=== PATIENT | female | born 1955 | race Caucasian/White ===

== ENCOUNTER 2019-09-06 13:50 | Outpatient (CLI) | payer MEDICARE, SELFPAY ==
--- NOTE | 2019-09-06 14:30 | MR_ITS ---
WS: [id number] MRI CERVICAL SPINE HISTORY: Neck pain COMPARISON: None available. Straightening of the normal cervical lordosis. Less than 1 mm retrolisthesis of C3. 2 mm retrolisthes is of C4. There is mild disc desiccation throughout the cervical spine. Signal within the cervical cord is normal. Visualized posterior fossa is unremarkable. Craniocervical junction, C1 and C2 relationship, odontoid process and soft tissues are normal. C2-C3: Normal. C3-C4: Annular disc bulging with a central moderate disc protrusion. Effacement of CSF was very sligh t contact and deformity of the ventral cervical cord. There is mild central stenosis. Hypertrophic os teophytes extend into the foramen with only minimal RIGHT foraminal narrowing. C4-C5: Hypertrophic osteophytic ridging and annular disc bulge. There is also facet arthritis. There is mild central and moderate RIGHT foraminal stenosis. C5-C6: Mild osteophytic ridging and annular disc bulging. There is mild RIGHT foraminal stenosis and mild central stenosis. C6-C7: Mild osteophytic ridging with a moderate-sized RIGHT paracentral disc protrusion. There is eff acement of CSF anterior and posterior to the cervical cord on the RIGHT. Moderate central stenosis is asymmetric to the RIGHT with moderate to severe RIGHT foraminal stenosis. Very mild LEFT foraminal s tenosis due to disc osteophyte disease. C7-T1: Normal. Paraspinal soft tissue are normal. MR/MR cervical spin wo con* [id number] IMPRESSION: 1. Asymmetric central canal stenosis at C6-7. Complete effacement of CSF anter ior and posterior to the RIGHT lateral cervical cord at the C6-7 level due to d isc, facet disease and arthritis of the facet joint. 2. Moderate to severe RIGHT foraminal stenosis at C6-7. 3. Mild central and moderate RIGHT foraminal stenosis at C4-5 with mild centra l and RIGHT foraminal stenosis at C5-6. 4. Central disc protrusion at C3-4 with mild contact on the cord. 5. Slight retrolisthesis of C3 and C4.
--- NOTE | 2019-09-06 14:30 | XR_ITS ---
WS: [id number] LATERAL CERVICAL SPINE: 3 view. Lateral radiographs are performed in upright neutral, flexion and extension to the patient's toleranc e. HISTORY: Neck pain COMPARISON: None available. Mild straightening of the normal cervical lordosis. C4 retrolisthesis by 2.3 mm on neutral imaging. S imilar on flexion and increases to 3.4 mm on extension. Less than 2 mm retrolisthesis of C3 during ex tension. Mild disc space narrowing or osteophytes from C4 to C7. No fracture. On neutral and flexion imaging there is narrowing of the anterior disc space at C3-4 which returns to normal spacing on extension. XR/XR cervical spine fl/ex [id number] IMPRESSION: 1. Retrolisthesis of C4 by 2.3 mm. No significant instability. 2. Endplate osteophytes and mild disc space narrowing at C4-C7.
--- NOTE | 2019-09-06 15:15 | MR_ITS ---
WS: [id number] MRI LUMBAR SPINE WITH AND WITHOUT CONTRAST HISTORY: Low back pain COMPARISON: 01/05/2018 TECHNIQUE: Sagittal and axial multisequence imaging is submitted. Sagittal and axial T1 fat sat seque nces post-ProHance 12 cc IV. Mild straightening of the normal lumbar lordosis. No marrow edema or acute compression fracture. Mild heterogeneity within the marrow from osteopenia. Similar to the prior study. LEFT L4-5 laminectomy d efect. Mild disc desiccation throughout the lumbar spine. Conus terminates normally at L1-2 disc level. L1-L2: Ligamentum flavum hypertrophy and mild facet arthropathy. No stenosis. L2-L3: Diffuse annular disc bulging with a central fissure. Mild effacement of ventral CSF and facet arthropathy. Mild central and subarticular recess stenosis. L3-L4: Diffuse annular disc bulging with facet and ligamentum flavum arthropathy. Central annular dis c fissures. There is mild central, subarticular recess and foraminal stenosis. Mild encroachment upon the L4 nerve roots in the subarticular recesses. Similar to the prior study. L4-L5: Diffuse annular disc bulging. LEFT L4-5 hemilaminectomy defect. Ligamentum flavum arthropathy and facet arthropathy. Significant decrease in size of the recurrent disc protrusion described on 12/17. There is slight enhancement in the region of the disc protrusion described on 01/05/2018. There is also moderate to severe LEFT and mild RIGHT foraminal stenosis. L5-S1: Asymmetric disc bulging extends to the LEFT. Fluid in the facet joints bilaterally. Mild LEFT foraminal stenosis. No discitis or osteomyelitis. MR/MR lumbar spine wo/w con [id number] IMPRESSION: 1. Status post LEFT hemilaminectomy defect at L4-5. 2. Recurrent disc protrusion described at the L4-5 level on the prior study is no longer present. There is a small area of enhancement now at the disc site. No new disc protrusion. 3. Mild central, subarticular recess and foraminal stenosis at L3-4. Similar e ncroachment upon the L4 nerve roots in the subarticular recesses as on the prio r study. 4. Moderate to severe LEFT and mild RIGHT foraminal stenosis at L4-5. Similar to the prior study. 5. Mild LEFT foraminal stenosis at L5-S1.
--- NOTE | 2019-09-06 15:15 | XR_ITS ---
WS: [id number] LATERAL LUMBAR SPINE: 3 view. Lateral radiographs are performed in upright neutral, flexion and extension to the patient's toleranc e. HISTORY: Low back pain COMPARISON: 01/05/2018 Posterior lumbar alignment is normal. Disc space narrowing and desiccation throughout. Endplate osteo phytes without fracture. No instability. XR/XR lumbar spine f/e only [id number] IMPRESSION: No lumbar spine instability.
== END 2019-09-06 13:51 | disposition home or self-care (01) ==
PROVIDERS: Family Provider Nurse Practitioner; PCP Nurse Practitioner; Visit Provider Licensed Practical Nurse
DX: M51.26 Other intervertebral disc displacement, lumbar region (principal); M48.061 Spinal stenosis, lumbar region without neurogenic claudication; M25.78 Osteophyte, vertebrae; M48.02 Spinal stenosis, cervical region; M50.21 Other cervical disc displacement, high cervical region
CPT/HCPCS: 72040; 72120; 72141; 72158; A9579

== ENCOUNTER 2019-09-16 06:00 | Outpatient (RCR) | payer MEDICARE, SELFPAY | END 2019-10-16 23:59 | disposition home or self-care (01) | LOC: MPT 06:00 | PROVIDERS: Family Provider Nurse Practitioner; PCP Nurse Practitioner; Referring Provider Specialist; Visit Provider Specialist | DX: M50.020 Cervical disc disorder with myelopathy, mid-cervical region, unspecified level (principal) | CPT/HCPCS: 97110; 97140; 97161; G0283 ==

== ENCOUNTER 2019-10-17 06:00 | Outpatient (RCR) | payer MEDICARE, SELFPAY | END 2019-11-15 23:59 | disposition home or self-care (01) | LOC: MPT 06:00 | PROVIDERS: PCP Nurse Practitioner; Visit Provider Specialist | DX: M50.020 Cervical disc disorder with myelopathy, mid-cervical region, unspecified level (principal) | CPT/HCPCS: 97110; 97140 ==

== ENCOUNTER → 2019-12-05 08:19 | Outpatient (BNVA) | payer MEDICARE, SELFPAY | PROVIDERS: PCP Physician Assistant Medical; Visit Provider Anesthesiology Pain Medicine | DX: M54.9 Dorsalgia, unspecified (principal); M96.1 Postlaminectomy syndrome, not elsewhere classified; M50.020 Cervical disc disorder with myelopathy, mid-cervical region, unspecified level; M43.12 Spondylolisthesis, cervical region; Z79.899 Other long term (current) drug therapy | CPT/HCPCS: 99204 ==

== ENCOUNTER → 2019-12-13 13:40 | Outpatient (BNVA) | payer MEDICARE, SELFPAY | PROVIDERS: PCP Physician Assistant Medical; Visit Provider Anesthesiology Pain Medicine | DX: M47.816 Spondylosis without myelopathy or radiculopathy, lumbar region (principal); M54.9 Dorsalgia, unspecified | CPT/HCPCS: 64493; 64494; 64495; J3490 ==

== ENCOUNTER → 2019-12-27 08:39 | Outpatient (BNVA) | payer MEDICARE, SELFPAY | PROVIDERS: PCP Physician Assistant Medical; Visit Provider Anesthesiology Pain Medicine | DX: M48.061 Spinal stenosis, lumbar region without neurogenic claudication (principal); M48.07 Spinal stenosis, lumbosacral region; M96.1 Postlaminectomy syndrome, not elsewhere classified; M50.020 Cervical disc disorder with myelopathy, mid-cervical region, unspecified level; M43.12 Spondylolisthesis, cervical region; M48.02 Spinal stenosis, cervical region; M54.9 Dorsalgia, unspecified; Z79.891 Long term (current) use of opiate analgesic | CPT/HCPCS: 99214 ==

== ENCOUNTER → 2020-01-06 11:00 | Outpatient (BNVA) | payer MEDICARE, SELFPAY | PROVIDERS: PCP Physician Assistant Medical; Visit Provider Anesthesiology Pain Medicine | DX: M47.816 Spondylosis without myelopathy or radiculopathy, lumbar region (principal); M54.9 Dorsalgia, unspecified; Z79.891 Long term (current) use of opiate analgesic | CPT/HCPCS: 64493; 64494; 64495; J1040; J3490 ==

== ENCOUNTER → 2020-01-20 10:11 | Outpatient (BNVA) | payer MEDICARE, SELFPAY | PROVIDERS: PCP Physician Assistant Medical; Visit Provider Anesthesiology Pain Medicine | DX: M54.9 Dorsalgia, unspecified (principal); M96.1 Postlaminectomy syndrome, not elsewhere classified; M50.020 Cervical disc disorder with myelopathy, mid-cervical region, unspecified level; M43.12 Spondylolisthesis, cervical region; Z79.891 Long term (current) use of opiate analgesic | CPT/HCPCS: 99213 ==

== ENCOUNTER → 2020-02-17 10:38 | Outpatient (BNVA) | payer MEDICARE, SELFPAY | PROVIDERS: PCP Physician Assistant Medical; Visit Provider Anesthesiology Pain Medicine | DX: G89.29 Other chronic pain (principal); M54.42 Lumbago with sciatica, left side; M54.41 Lumbago with sciatica, right side; M54.9 Dorsalgia, unspecified; M96.1 Postlaminectomy syndrome, not elsewhere classified; M50.020 Cervical disc disorder with myelopathy, mid-cervical region, unspecified level; M43.12 Spondylolisthesis, cervical region; Z79.891 Long term (current) use of opiate analgesic | CPT/HCPCS: 99213 ==

== ENCOUNTER → 2020-05-03 10:35 | Outpatient (BNVA) | payer MEDICARE, SELFPAY | PROVIDERS: PCP Physician Assistant Medical; Visit Provider Anesthesiology Pain Medicine | DX: G89.29 Other chronic pain (principal); M54.9 Dorsalgia, unspecified; M96.1 Postlaminectomy syndrome, not elsewhere classified; M50.020 Cervical disc disorder with myelopathy, mid-cervical region, unspecified level; M43.12 Spondylolisthesis, cervical region; Z79.891 Long term (current) use of opiate analgesic | CPT/HCPCS: 99213 ==

== ENCOUNTER → 2020-07-16 08:46 | Outpatient (BNVA) | payer MEDICARE, SELFPAY | PROVIDERS: PCP Physician Assistant Medical; Visit Provider Anesthesiology Pain Medicine | DX: G89.29 Other chronic pain (principal); M54.9 Dorsalgia, unspecified; M96.1 Postlaminectomy syndrome, not elsewhere classified; M50.020 Cervical disc disorder with myelopathy, mid-cervical region, unspecified level; M43.12 Spondylolisthesis, cervical region; Z79.891 Long term (current) use of opiate analgesic | CPT/HCPCS: 99213; 99214 ==

== ENCOUNTER → 2020-09-17 08:42 | Outpatient (BNVA) | payer MEDICARE, SELFPAY | PROVIDERS: PCP Physician Assistant Medical; Visit Provider Anesthesiology Pain Medicine | DX: G89.29 Other chronic pain (principal); M79.604 Pain in right leg; M79.605 Pain in left leg; M48.062 Spinal stenosis, lumbar region with neurogenic claudication; M54.9 Dorsalgia, unspecified; M96.1 Postlaminectomy syndrome, not elsewhere classified; M50.020 Cervical disc disorder with myelopathy, mid-cervical region, unspecified level; M43.12 Spondylolisthesis, cervical region; Z79.891 Long term (current) use of opiate analgesic | CPT/HCPCS: 99214 ==

== ENCOUNTER → 2020-10-11 09:00 | Outpatient (BNVA) | payer MEDICARE, SELFPAY | PROVIDERS: PCP Physician Assistant Medical; Referring Provider Anesthesiology Pain Medicine; Visit Provider Orthopaedic Surgery | DX: G89.29 Other chronic pain (principal) | CPT/HCPCS: 72110 ==

== ENCOUNTER → 2020-10-16 08:57 | Outpatient (BNVA) | payer MEDICARE, SELFPAY | PROVIDERS: PCP Physician Assistant Medical; Visit Provider Anesthesiology Pain Medicine | DX: G89.29 Other chronic pain (principal); M54.9 Dorsalgia, unspecified; M79.604 Pain in right leg; M79.605 Pain in left leg; M43.12 Spondylolisthesis, cervical region; M50.020 Cervical disc disorder with myelopathy, mid-cervical region, unspecified level; M96.1 Postlaminectomy syndrome, not elsewhere classified; Z79.891 Long term (current) use of opiate analgesic | CPT/HCPCS: 99214 ==

== ENCOUNTER → 2020-11-16 10:54 | Outpatient (BNVA) | payer MEDICARE, SELFPAY | PROVIDERS: PCP Physician Assistant Medical; Visit Provider Anesthesiology Pain Medicine | DX: G89.29 Other chronic pain (principal); Z11.52 Encounter for screening for COVID-19; M54.9 Dorsalgia, unspecified; Z20.822 Contact with and (suspected) exposure to COVID-19; M96.1 Postlaminectomy syndrome, not elsewhere classified; Z01.812 Encounter for preprocedural laboratory examination; M50.020 Cervical disc disorder with myelopathy, mid-cervical region, unspecified level; M43.12 Spondylolisthesis, cervical region; M79.604 Pain in right leg; M79.605 Pain in left leg; Z79.891 Long term (current) use of opiate analgesic | CPT/HCPCS: 87635; 99214 ==

== ENCOUNTER 2020-11-21 08:23 | Day surgery (SDC) | payer MEDICARE, SELFPAY ==
[2020-11-20 13:51] VITALS: BMI 17.5
[2020-11-21] VITALS (10 sets, daily range): BP systolic 105–148; BP diastolic 58–84; PULSE 67–90; RESP 12–19; TEMP 36.3–36.5; O2SAT 93–100
--- NOTE | 2020-11-21 | SCC_ITS ---
Procedure Done: 1. L5/S1 laminectomy with bilateral partail facetectomies 2. L4/5 revision laminectomy with bilateral partial facetectomies 3. L3/4 laminectomy with bilateal partial facetectomies 30.9 seconds of fluoroscopic guidance, for a cumulative dose of 4.35 mGy, was provided to Dr. Garcia by the radiology department. C-arm images of the lumbar were saved for the patient's permanent record. [facility]
--- NOTE | 2020-11-21 | XR_ITS ---
WS: [id number] Lumbar spine, C-arm fluoroscopy view in the OR, 11/21/2020 Clinical Data: 07/19 08/20 WITH REVISION L5/S1 DECOMPRESSION Comparison: Lumbar spine, 10/11/2020. Findings: Dr. Garcia performed a revision of the L4-L5 disc and decompression of the L5-S1 disc. XR/XR lumbar spine 2-3V* [id number] Impression: Revision of L4-L5 and decompression of L5-S1.
--- NOTE | 2020-11-21 08:56 | ANES.PREANE2 ---
Pre-Anesthetic Assessment Pre-Anesthetic Assessment: Height/Weight: Height 1.57 m Weight 43.545 kg Temp Pulse Resp BP Pulse Ox 97.3 F L 75 18 128/68 93 11/21/20 08:43 11/21/20 08:43 11/21/20 08:43 11/21/20 08:43 11/21/20 08:43 Preop Diagnosis: lumbar stenosis Proposed Procedure: Operation Date: 11/21/20 15:35 Proposed Procedures p Lumbar Spine Decompression 3/4 4/5 with revision 5/s1 [id number] m48.062(Not Applicable) - Kal Garcia DO Familial anesthetic complications: none Was Beta Emil taken within 24 hours: N/A Was Clonidine taken within 24 hours: N/A Last intake: Intake Last Liquid Date 11/20/20 Last Liquid Time 22:00 Last Solid Date 11/20/20 Last Solid Time 20:00 Social: Social History: No alcohol and No tobacco Comment: former smoker Exam: Pre-Anes Outpt Exam: alert, oriented x 3, clear to auscultation bilaterally and regular rate & rhythm Airway: Cervical ROM: WNL MP: 2 Dentition: Other (upper plate) Pulmonary: Pulmonary: COPD CV/HEM: CV/HEM: HTN Comments: No NTG use for over 1 year Stress test 2019 CONCLUSION: 1. Normal EKG response to treadmill exercise. Interpretation limited by baseline artifact. 2. No exercise-induced chest pain or cardiac arrhythmia 3. Excellent exercise tolerance, attained a maximum of 10.2 METs. The Rene treadmill score of 6.5, suggestive of low risk. Double product 21,016. 4. Perfusion scan will be documented separately. 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 Aguilar L4-L5 hemilaminotomy/discectomy/foraminotomy History of surgery on wrist S/P left hemicolectomy 02/21/20 Family History Sister Lung disease Mother Heart disease Diabetes Father Diabetes Social History Smoking and tobacco status: former smoker Alcohol intake: never Lives independently: Yes Household members: spouse Marital status: Current occupational status: retired History of recent travel: No Data Anesthesia Cardiac Studies: No Data to Display
[2020-11-21] MEDS: sodium chloride 0.9% 1,000 ML 30 ML IV (09:12)
--- NOTE | 2020-11-21 09:35 | PM.HP ---
Providers/Chief Complaint Primary Care Provider: Hernan Garcia Chief Complaint: 07/19 08/20 with revision 5/s1 [id number] History of Present Illness Sangeeta Manzanares is a 65 year old female 65 year old female her for evaluation of low back pain. Patient states she was able to walk up and down hills and would walk three miles a day without pain or discomfort but has no londer been able to do so due to pain. Chief Complaint: low back pain Onset: years Duration: years Characteristics: ache Severity: 02/24 Location: low abck pain Radiating symptoms: all of it bilateral lower extremity , weakness, bilateral hip pain Aggravating factors: walking, Alleviating factors: none Neuro deficits: denies incontinence of bowel/bladder, saddle anesthesia. Prior tx:DOS: 11/03/16 Left L4-L5 hemilaminotomy/discectomy/foraminotomy, Injections with short term relief Review of Systems Narrative: General ROS: negative for weight changes, fever ENT ROS: negative for nasal congestion, drainage or bleeding, sore throat, dysphagia or ear pain Eyes: PERRL Hematological and Lymphatic ROS: negative for swollen glands or abnormal bleeding Endocrine ROS: negative for polyuria/polydpsia or new changes in weight Respiratory ROS: negative for cough, shortness of breath, or wheezing Cardiovascular ROS: negative for chest pain or dyspnea on exertion Gastrointestinal ROS: negative for reflux, abdominal pain, change in bowel habits, or black or bloody stools Musculoskeletal ROS: negative for back pain, neck pain, or joint pain or swelling except for current problem Neurological ROS: negative for TIA or stoke symptoms Skin: no rashes Medications/Allergies Home Medications Medication Instructions Recorded Confirmed Last Taken Type budesonide-formoterol HFA 160 2 puff INHALATION BID 08/29/19 11/21/20 11/21/20 History mcg-4.5 mcg/actuation aerosol inhaler bupropion HCl 75 mg tablet 75 mg PO BID tab 08/29/19 11/21/20 11/20/20 History aspirin 81 mg tablet,delayed 81 mg PO DAILY 12/05/19 11/21/20 Unknown History release cholecalciferol (vitamin D3) 125 125 mcg PO DAILY 12/05/19 11/21/20 11/20/20 History mcg (5,000 unit) capsule clonidine HCl 0.1 mg tablet 0.1 mg PO BID PRN 12/05/19 11/21/20 Unknown History cyanocobalamin (vitamin B-12) 1,000 mcg PO DAILY 12/05/19 11/21/20 11/20/20 History 1,000 mcg capsule famotidine 40 mg tablet 40 mg PO DAILY 12/05/19 11/21/20 11/20/20 History nitroglycerin 0.4 mg sublingual 0.4 mg SUBLINGUAL Q5M PRN 12/05/19 11/20/20 Unknown History tablet lisinopril 10 mg tablet 10 mg PO DAILY 03/05/20 11/21/20 11/21/20 History azelastine 137 mcg (0.1 %) nasal 2 spray INTRANASAL BID 10/11/20 11/21/20 11/20/20 History spray aerosol levocetirizine 5 mg tablet 5 mg PO DAILY 10/11/20 11/21/20 11/20/20 History tramadol 50 mg tablet 50 mg PO BID PRN #60 tab 11/16/20 11/21/20 11/20/20 Rx Allergies Allergy/AdvReac Type Severity Reaction Status Date / Time moxifloxacin [From Avelox] AdvReac ITCHING Verified 11/20/20 13:46 Sulfa (Sulfonamide AdvReac ITCHING Verified 11/20/20 13:46 Antibiotics) PFSH Acute PFSH: Medical History Arthritis of lumbar spine Cervical disc disorder with myelopathy of mid-cervical region Chronic low back pain Lumbar post-laminectomy syndrome Neck pain of over 3 months duration Spondylolisthesis of cervical region Surgical History History of hysterectomy History of lumbar surgery (11/03/16) Dr. Aguilar L4-L5 hemilaminotomy/discectomy/foraminotomy History of surgery on wrist S/P left hemicolectomy 02/21/20 Family History Sister Lung disease Mother Heart disease Diabetes Father Diabetes Social History Smoking and tobacco status: former smoker Alcohol intake: never Lives independently: Yes Household members: spouse Marital status: Current occupational status: retired History of recent travel: No Vitals/I&O/Wt Last Vital Signs Temp 97.3 F L 11/21/20 08:43 Pulse 75 11/21/20 08:43 Resp 18 11/21/20 08:43 BP 128/68 11/21/20 08:43 Pulse Ox 93 11/21/20 08:43 Weight last 48 hrs Weight 96 lb Physical Exam Narrative: EXAM NARRATIVE: CONSTITUTIONAL: The patient is a normal appearing [] in no apparent distress. GENERAL: Patient in no acute distress. CARDIAC: Regular rate and rhythm. CHEST: Normal inspiratory effort, normal respiratory rate. ABDOMEN: Soft and nontender. SKIN: Clear, warm and intact. NEURO?PSYCH: The patient is alert and oriented to person, place and time. Sensorv /SILT Motor StrengthShoulder abduction C5 5/5Wrist extension C6 5/5Elbow extension C7 5/5Hand [employer] Senior C8 5/5Finger abduction T15/5 Radial/ Ulnar/ Median n intact LowerSensory (SILT)Motor StrengthHin flexion L2/3Ant/inner thigh 5/5Hip adduction L2/3 5/5Knee extension L4 Lat thigh, 5/5Toe dorsiflexion L5 5/5Ankle dorsiflexion L5/ J35Fheyjsl flexion S1 5/5 DTRBleeps 2+Triceps 2+Brachioradialis 2+Patellar 2+Achilles 2+ MUSCULOSKELETAL: [] UPPEREXTREMITIES: The patient had full active ROM in fingers, wrist, elbow, and shoulder. The patient demonstrated ability to fully flex/extend/abduct/adduct fingers, make ok sign, cross 2nd/3rd digits, extend 1st digit fully.. Radial pulse 2+, CR<2 seconds. LOWER EXTREMITIES: Pt has full, active ROM of toes, ankle, knee, and hip. Dorsalis pedis/posterior tibialis pulses 2+, CR<2 seconds. SPINE: Skin warm, dry, intact. A&P Assessment and plan (1) Lumbar post-laminectomy syndrome: lumbar decompressin Status: Chronic Attestations Medical Necessity Statement*: failed conservative treatment Coding Level of Care Code Acute Switch Inspector for [facility] Diagnoses Lumbar post-laminectomy syndrome M96.1
--- NOTE | 2020-11-21 09:38 | W.PM.OPSUD ---
Surgery/Procedure H&P Update DATE OF PROCEDURE: November 21, 2020 DATE H&P PERFORMED: 11/21/20 H&P UPDATE INFORMATION: I have reviewed H&P completed within last 30 days PREOP DIAGNOSIS: lumbar stenosis PLANNED PROCEDURE: Operation Date: 11/21/20 15:35 Proposed Procedures p Lumbar Spine Decompression 07/19 08/20 with revision [id number] m48.062(Not Applicable) - Kal Garcia DO
[2020-11-21 10:44] LABS: Basophils # 0.1 10^3/uL (0.0-0.1); Basophils % 0.7 %; Eosinophils # 0.1 10^3/uL (0.0-0.8); Hematocrit 39.7 % (37.0-47.0); Lymphocytes # 1.5 10^3/uL (0.8-4.8); Lymphocytes % 21.2 %; Mean Corpuscular HGB Conc 32.7 g/dL (30.0-36.0); Mean Corpuscular Hemoglobin 31.3 pg (28.0-34.0); Mean Corpuscular Volume 95.7 fL (81-99); Mean Platelet Volume 9.5 fL (7.4-10.4); Monocytes # 0.6 10^3/uL (0.2-0.9); Nucleated Red Blood Cells % 0 %; Platelet Count 412 10^3/cmm (130-400); Red Blood Count 4.15 10^6/uL (4.1-5.3); Red Cell Distribution Width 12.6 % (12.1-15.1)
[2020-11-21 11:10] LABS: Anion Gap 14.1 (5-19); Blood Urea Nitrogen 15 mg/dL (8-23); Calcium 8.7 mg/dL (8.5-10.5); Carbon Dioxide 25 mmol/L (22-29); Chloride 99 mmol/L (98-107); Glomerular Filtration Rate 123.8 mL/min (90-130); Glucose 77 mg/dL (65-115); Osmolality Calculated 278 mOsm/kg (285-295); Potassium 4.1 mmol/L (3.5-5.1); Sodium 134 mmol/L (136-145)
--- NOTE | 2020-11-21 11:48 | PM.OP ---
Operative Report Date of procedure: November 21, 2020 Pre-op Diagnosis: lumbar stenosis Post-op diagnosis: same Procedure Done: 1. L5/S1 laminectomy with bilateral partail facetectomies 2. L4/5 revision laminectomy with bilateral partial facetectomies 3. L3/4 laminectomy with bilateal partial facetectomies Surgeon: Kal Garcia Anesthesia: General Estimated blood loss (mL): 10 Condition: stable Disposition: PACU Procedure: 1. L5/S1 laminectomy with bilateral partail facetectomies 2. L4/5 revision laminectomy with bilateral partial facetectomies 3. L3/4 laminectomy with bilateal partial facetectomies Patient is brought to the operative suite. After undergoing anesthesia they are placed in the supine position. All areas of impingement are well padded. Patient is then prepped and draped in the normal sterile fashion. A skin incision is made over the L5/S1 level. This is confirmed under c-arm guidance. A series of dilators are passed and the tubular retractor is docked on the L5 lamina. A bovie is used to clear the soft tissue off the lamina and the L 5/S1 facet joint. A high speed douglas is then used to perform the laminectomy and take down the medial aspect of the L 5/S1 facet joint. A kerrison rongeure was then used to take down the remaining lamina and smooth the edged of the laminectomy up to the point where the ligamentum flavum attaches. Attention was then brought to the medial aspect of the facet joint. The remaining medial aspect of the superior and inferior aspect of the facet joint were taken down with the kerrison from the pedicle of L5 to S1. The facet joint had significant hypertrophy. Attention was then brought to the Ligamentum Flavum. The ligament was taken down from the lamina of L5 to S1 and out medially to the remaining facet joint. The ligament was thick. The dura was then exposed. The dura was in good repair. The L5 nerve was then traced with a curette out the L5/S1 foramen and found to be adequately decompressed. The S1 nerve was traced with a curette around the S1 pedicle. The lateral recess was opened with a kerrison helping to further decompress the S1 nerve. The tubular retractor was then tilted to the contralateral side. The bovie was used to take down the soft tissue on the spinous process. The high speed douglas was used to take down the spinous process and then the contralateral lamina of L5. The kerrison rongeur was used to take down the remaining lamina to the point where the ligamentum flavum attached and the ligamentum flavum was taken down from L5 to S1. The kerrison rongeur was then used to reach across and take down the medial aspect of the contralateral L5/S1 facet joint.The currete was used to trace the contralateral L5 nerve out the L5/S1 foramen to make sure it was decompressed adequatesly and the S1 was traced around the S1 pedicle. The lateral recess was opened further with the kerrison to ensure the S1 is adequately decompressed. Wound is then irrigated copiously with saline and surgiflo is used to stop any bleeding. The tubular retractor is removed A skin incision is made over the L4/5 level using previous skin incision. This is confirmed under c-arm guidance. A series of dilators are passed and the tubular retractor is docked on the L4 lamina. A bovie is used to clear the soft tissue off the lamina and the L 4/5 facet joint. A high speed douglas is then used to perform the laminectomy and take down the medial aspect of the L 4/5 facet joint. A kerrison rongeure was then used to take down the remaining lamina and smooth the edged of the laminectomy up to the point where the ligamentum flavum attaches. There was significant amount of scar tissue this was cleared with a curved curette. Attention was then brought to the medial aspect of the facet joint where previous laminectomy and partial facetectomy had been performed. There was again significant scar tissue. The remaining medial aspect of the superior and inferior aspect of the facet joint were taken down with the kerrison from the pedicle of L4 to L 5. The facet joint had significant hypertrophy. Attention was then brought to the Ligamentum Flavum. The ligament was taken down from the lamina of L4 to L5 and out medially to the remaining facet joint. The ligament was thick and scarred. The dura was then exposed. The dura was in good repair. The L4 nerve was then traced with a curette out the L4/5 foramen and found to be adequately decompressed. The L5 nerve was traced with a curette around the L5 pedicle. The lateral recess was opened with a kerrison helping to further decompress the L5 nerve. The tubular retractor was then tilted to the contralateral side. The bovie was used to take down the soft tissue on the spinous process. The high speed douglas was used to take down the spinous process and then the contralateral lamina of L4. The kerrison rongeur was used to take down the remaining lamina to the point where the ligamentum flavum attached and the ligamentum flavum was taken down from L4 to L5. The kerrison rongeur was then used to reach across and take down the medial aspect of the contralateral L4/5 facet joint.The currete was used to trace the contralateral L4 nerve out the L4/5 foramen to make sure it was decompressed adequatesly and the L5 was traced around the L5 pedicle. The lateral recess was opened further with the kerrison to ensure the L5 is adequately decompressed. Wound is then irrigated copiously with saline and surgiflo is used to stop any bleeding. The tubular retractor is removed A skin incision is made over the L3/4 level. This is confirmed under c-arm guidance. A series of dilators are passed and the tubular retractor is docked on the L3 lamina. A bovie is used to clear the soft tissue off the lamina and the L 3/4 facet joint. A high speed douglas is then used to perform the laminectomy and take down the medial aspect of the L 3/4 facet joint. A kerrison rongeure was then used to take down the remaining lamina and smooth the edged of the laminectomy up to the point where the ligamentum flavum attaches. Attention was then brought to the medial aspect of the facet joint. The remaining medial aspect of the superior and inferior aspect of the facet joint were taken down with the kerrison from the pedicle of L3 to L 4. The facet joint had significant hypertrophy. Attention was then brought to the Ligamentum Flavum. The ligament was taken down from the lamina of L3 to L4 and out medially to the remaining facet joint. The ligament was thick. The dura was then exposed. The dura was in good repair. The L3 nerve was then traced with a curette out the L3/4 foramen and found to be adequately decompressed. The L4 nerve was traced with a curette around the L4 pedicle. The lateral recess was opened with a kerrison helping to further decompress the L4 nerve. The tubular retractor was then tilted to the contralateral side. The bovie was used to take down the soft tissue on the spinous process. The high speed douglas was used to take down the spinous process and then the contralateral lamina of L3. The kerrison rongeur was used to take down the remaining lamina to the point where the ligamentum flavum attached and the ligamentum flavum was taken down from L3 to L4. The kerrison rongeur was then used to reach across and take down the medial aspect of the contralateral L3/4 facet joint.The currete was used to trace the contralateral L3 nerve out the L3/4 foramen to make sure it was decompressed adequatesly and the L4 was traced around the L4 pedicle. The lateral recess was opened further with the kerrison to ensure the L4 is adequately decompressed. Wound is then irrigated copiously with saline and surgiflo is used to stop any bleeding. The tubular retractor is removed and the wound is closed with vicryl and monocryl suture. Glue is then used to protect the wound. A sterile dressing is then placed. Patient was then placed in the supine position and transferred to the PACU in stable condition.
--- NOTE | 2020-11-21 11:57 | SUR.PHASEI ---
PT AWAKE ALERT , DENIES PAIN AND NAUSEA, MOVES ALL EXTREMITIED TO COMMAND, PT REQUESTS ICE CHIPS, VSS. MONITOR SR, PT REMAINS ON RA. DRESSING TO LOWER BACK D/I
[2020-11-21] MEDS: fentaNYL 50 mcg/mL INJ 2mL IVP (12:08)
[2020-11-21] MEDS: HYDROcodone-acetaminophen 5-325 mg Tablet 1 TAB PO (13:15)
--- NOTE | 2020-11-21 14:34 | ANE.PACU2 ---
Inpatient post-anesthesia follow up: Airway intact: Yes Vital signs: Temperature 97.7 F Pulse Rate 68 Respiratory Rate 18 Blood Pressure 122/65 Pulse Oximetry 99 Oxygen Delivery Me thod Room Air Oxygen Flow Rate 3 Fraction of Inspir ed Oxygen Hydration adequate: Yes Nausea and vomiting: No Pain level: 1 Mental status: Baseline
== END 2020-11-21 13:55 | disposition home or self-care (01) ==
PROVIDERS: Anesthesiology; PCP Physician Assistant Medical; Visit Provider Orthopaedic Surgery
PROC: (CPT 63005; principal; 2020-11-21 15:15)
DX: M48.061 Spinal stenosis, lumbar region without neurogenic claudication (principal); Z79.82 Long term (current) use of aspirin; Z87.891 Personal history of nicotine dependence; J44.9 Chronic obstructive pulmonary disease, unspecified; I10 Essential (primary) hypertension; Z82.49 Family history of ischemic heart disease and other diseases of the circulatory system; Z83.3 Family history of diabetes mellitus
CPT/HCPCS: 63042; 63047; 63048; 36415; 72100; 76000; 80048; 85025; J0690; J1100; J2250; J2370; J2405; J2704; J3010; J3490; J7030

== ENCOUNTER → 2021-01-10 09:08 | Outpatient (BNVA) | payer MEDICARE, SELFPAY | PROVIDERS: PCP Physician Assistant Medical; Visit Provider Anesthesiology Pain Medicine | DX: G89.29 Other chronic pain (principal); M79.605 Pain in left leg; M54.5 Low back pain; M96.1 Postlaminectomy syndrome, not elsewhere classified; M50.020 Cervical disc disorder with myelopathy, mid-cervical region, unspecified level; M43.12 Spondylolisthesis, cervical region; M79.2 Neuralgia and neuritis, unspecified; Z79.891 Long term (current) use of opiate analgesic | CPT/HCPCS: 99214 ==

== ENCOUNTER → 2021-01-31 09:34 | Outpatient (BNVA) | payer MEDICARE, SELFPAY | PROVIDERS: PCP Physician Assistant Medical; Visit Provider Anesthesiology Pain Medicine | DX: G89.29 Other chronic pain (principal); M54.5 Low back pain; M96.1 Postlaminectomy syndrome, not elsewhere classified; M50.020 Cervical disc disorder with myelopathy, mid-cervical region, unspecified level; M43.12 Spondylolisthesis, cervical region; M79.2 Neuralgia and neuritis, unspecified; M79.604 Pain in right leg; M79.605 Pain in left leg; Z79.891 Long term (current) use of opiate analgesic | CPT/HCPCS: 99214 ==

== ENCOUNTER → 2021-05-02 09:52 | Outpatient (BNVA) | payer MEDICARE, SELFPAY | PROVIDERS: PCP Physician Assistant; Visit Provider Anesthesiology Pain Medicine | DX: G89.29 Other chronic pain (principal); M96.1 Postlaminectomy syndrome, not elsewhere classified; M50.020 Cervical disc disorder with myelopathy, mid-cervical region, unspecified level; M43.12 Spondylolisthesis, cervical region; M48.061 Spinal stenosis, lumbar region without neurogenic claudication; M79.2 Neuralgia and neuritis, unspecified; Z79.891 Long term (current) use of opiate analgesic | CPT/HCPCS: 99213 ==

== ENCOUNTER 2021-05-14 06:00 | Outpatient (RCR) | payer MEDICARE, SELFPAY | END 2021-05-17 23:59 | disposition home or self-care (01) | LOC: MPT 06:00 | PROVIDERS: PCP Physician Assistant; Referring Provider Orthopaedic Surgery; Visit Provider Orthopaedic Surgery | DX: Z48.811 Encounter for surgical aftercare following surgery on the nervous system (principal) | CPT/HCPCS: 97110; 97162 ==

== ENCOUNTER 2021-05-18 06:00 | Outpatient (RCR) | payer MEDICARE, SELFPAY | END 2021-06-17 23:59 | disposition home or self-care (01) | LOC: MPT 06:00 | PROVIDERS: PCP Physician Assistant; Referring Provider Orthopaedic Surgery; Visit Provider Orthopaedic Surgery | DX: Z47.89 Encounter for other orthopedic aftercare (principal) | CPT/HCPCS: 97110; G0283 ==

== ENCOUNTER 2021-06-18 07:37 | Outpatient (CLI) | payer MEDICARE, SELFPAY ==
--- NOTE | 2021-06-18 07:50 | CT_ITS ---
WS: [id number] CT CHEST WITH INTRAVENOUS CONTRAST HISTORY: OTHER NONSPECIFIC ABNORMAL FINDING OF LUNG FIELD TECHNIQUE: Contiguous 5 mm axial imaging performed on the thorax. Coronal and sagittal reformats are submitted. All CT scans at [facility] use at least one of these dose optimization techniques: automated exposure control; mA and/or kV adjustment per patient size (includes targeted exams where dose is matched to clinical indication); or iterative reconstruction. CONTRAST: Omnipaque 300; 75 mL IV. DLP: 321.43 mGy.cm COMPARISON: None available. Lungs and central airway: Biapical pleural thickening and scarring. Subsegmental areas of mild atelec tasis at the lingula and RIGHT middle lobe. Chronic emphysema. No mass identified. Pleura: Normal. No pleural effusion. Heart and pericardium: Normal size heart with no pericardial effusion. Mediastinum and aureliano: No mediastinum or hilar adenopathy. Vessels: Normal size pulmonary artery. Normal thoracic aorta. No significant atherosclerotic disease. Chest wall and lower neck: No soft tissue masses. Upper abdomen: Small hiatal hernia. Visualized liver is negative. Increased fecal retention throughou t the transverse colon. Osseous structures: No destructive bone lesions. Mild thoracic and lumbar spine spondylitic changes. CT/CT chest w con* [id number] IMPRESSION: 1. No pulmonary mass or nodule. No prior radiograph is available for compariso n. If the radiograph becomes available for comparison then identified the abnor mality of concern an addendum and repeat evaluation can be obtained. 2. Chronic emphysema. 3. Subsegmental areas of atelectasis in the RIGHT middle lobe and lingula.
[2021-06-18 08:35] LABS: Blood Urea Nitrogen 18 mg/dL (8-23); Glomerular Filtration Rate 100.3 mL/min (90-130)
[2021-06-18] MEDS: iohexol 300 mg/mL 100 mL Btl IV (08:40)
== END 2021-06-18 07:38 | disposition home or self-care (01) ==
LOC: RAD 07:42
PROVIDERS: PCP Physician Assistant; Visit Provider Physician Assistant
DX: R91.8 Other nonspecific abnormal finding of lung field (principal); J43.9 Emphysema, unspecified; J98.11 Atelectasis
CPT/HCPCS: 71260; 82565; 84520

== ENCOUNTER → 2021-07-25 08:58 | Outpatient (BNVA) | payer MEDICARE, SELFPAY | PROVIDERS: PCP Physician Assistant; Visit Provider Orthopaedic Surgery | DX: Z98.890 Other specified postprocedural states; M25.78 Osteophyte, vertebrae | CPT/HCPCS: 72110 ==

== ENCOUNTER → 2021-08-05 09:57 | Outpatient (BNVA) | payer MEDICARE, SELFPAY | PROVIDERS: PCP Physician Assistant; Visit Provider Anesthesiology Pain Medicine | DX: G89.29 Other chronic pain (principal); M54.50 Low back pain, unspecified; M96.1 Postlaminectomy syndrome, not elsewhere classified; M50.020 Cervical disc disorder with myelopathy, mid-cervical region, unspecified level; M43.12 Spondylolisthesis, cervical region; M79.2 Neuralgia and neuritis, unspecified; M79.604 Pain in right leg; M79.605 Pain in left leg; Z79.891 Long term (current) use of opiate analgesic; Z87.891 Personal history of nicotine dependence | CPT/HCPCS: 99214 ==

== ENCOUNTER 2021-09-10 14:11 | Outpatient (CLI) | payer MEDICARE, SELFPAY ==
--- NOTE | 2021-09-10 15:15 | MR_ITS ---
WS: [id number] MRI LUMBAR SPINE NONCONTRAST TECHNIQUE: Sagittal T1, T2 and STIR imaging. Axial T1 and T2 imaging. CLINICAL INFORMATION: M54.5 - Low back pain COMPARISON: MRI September 06, 2019 FINDINGS: Mild lumbar curve. No acute compression. No high-grade central canal stenosis. Disc bulging worse at L2-L3, L3-L4, L4-L5. Prior postoperative changes LEFT hemilaminectomy L4-L5. LEFT L5 hemilaminotomy a ppears new from previous L1-L2: Mild annular bulging. Moderate facet arthropathy. Spinal canal and foramen are patent. L2-L3: Mild disc bulging with narrowing of the subarticular recess. Mild facet arthropathy. Spinal ca nal is patent. L3-L4: Mild annular bulging. Slight impingement subarticular recess bilaterally. Moderate facet arthr opathy. Foramen are patent. L4-L5: LEFT L4-L5 hemilaminectomy. Mild disc bulging with osteophytic ridging. Shallow central disc b ulging with narrowing of the subarticular recess bilaterally. Moderate LEFT and mild RIGHT foraminal narrowing. Mild facet arthropathy. L5-S1: Prior LEFT hemilaminotomy. This is new from previous. Mild LEFT and no significant RIGHT jimy inal narrowing. Mild facet arthropathy. Slight narrowing of the subarticular recess bilaterally impro pineda from previous. Small LEFT renal cyst. Visualized pelvic bony structures: Normal. Paravertebral soft tissues: Normal. MR/MR lumbar spine wo con* [id number] IMPRESSION: 1. Mild lumbar curve. No acute compression. No high-grade central canal stenos is. 2. Prior postoperative changes L4-L5 hemilaminectomy and LEFT L5 laminotomy. L EFT L5 laminotomy appears new from previous. 3. Shallow central disc bulging L2-L3 L3-L4 and L4-L5 with narrowing of the sifuentes barticular recess bilaterally. 4. Small bilateral foraminal protrusions L4-L5 with moderate LEFT and mild RIG HT foraminal narrowing. 5. Mild LEFT L5-S1 foraminal narrowing.
== END 2021-09-10 14:12 | disposition home or self-care (01) ==
PROVIDERS: PCP Physician Assistant; Visit Provider Internal Medicine Cardiovascular Disease
DX: M51.26 Other intervertebral disc displacement, lumbar region (principal); Z98.890 Other specified postprocedural states
CPT/HCPCS: 72148

== ENCOUNTER 2021-09-17 07:40 | Outpatient (CLI) | payer MEDICARE, SELFPAY ==
--- NOTE | 2021-09-17 07:55 | ECG_ITS ---
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 Interpretive Statements NAME OF STUDY: LEXISCAN SESTAMIBI STRESS TEST INDICATION: Chest Pain PROCEDURE: At the baseline, the blood pressure was 105/67 mmHg with a heart rate of 69 bpm. The electrocardiogram showed normal sinus rhythm, normal axis with normal ST and T's. The Lexiscan was infused over a period of 20 seconds. A total of 0.4 milligrams of Lexiscan was infused. The stress phase was continued for a total of 5 minutes. Heart rate at the end of the stress phase was 103 bpm with a blood pressure of 125/62 mmHg. The EKG at the peak infusion revealed sinus rhythm with no significant ST-T wave changes. Sestamibi was injected 20 seconds after the Lexiscan infusion. Blood pressure at the end of the recovery phase was 121/64 mmHg with a heart rate of 99 beats per minute. CONCLUSION: 1. Normal EKG response to LexiScan infusion. 2. No LexiScan induced chest pain or cardiac arrhythmia. 3. Normal blood pressure and heart rate response. 4. Sestamibi/sestamibi perfusion scan pending; see separate report. Electronically Signed On 09-19-2021 17:57:42 CDT by Shanice Santiago M.D. [id number]
--- NOTE | 2021-09-17 07:56 | NMCV_ITS ---
NM sinan perf SPECT r/s* [id number] Sangeeta Manzanares Age: 66 Gender: F : 1955 Exam Date: 09/17/2021 08:33 Ordering Phys: Shanice Santiago MD ([email or web address]) Technologist: YFN Nova Exam Location: [facility] Indications: CHEST PAIN STRESS TEST Please see separate stress test report in [facility] for full findings IMAGE PROTOCOL Rest/Stress 1 Lexiscan Day Radiopharmaceutical Dose (mCi) Administration Site Administered by Rest: Tc-99m 10.9 IV YFN Nova Sestamibi Stress:Tc-99m 32.7 IV YFN Etienne Sestamibi Rest: 17-Sep-2021 60 Discovery 630 Stress: 17-Sep-2021 30 Discovery 630 0.4mg Lexiscan. Images obtained in supine and prone position. SPECT RESULTS Technical Quality: Excellent Raw Data Analysis: Normal Image Corrections: No attenuation or motion correction applied Summed Stress Score: 2 Summed Rest Score: 1 Summed Difference Score: 1 PERFUSION FINDINGS Small size perfusion abnormality of mild severity of mid inferolateral wall on supine stress images with improved tracer uptake on prone stress images. This is suggestive of attenuation artifact. FUNCTIONAL RESULTS (calculated via Gated SPECT) Stress Image LV EF (%): 75 Stress EDV (mL):59 TID: 1.07 Stress ESV (mL):15 FUNCTIONAL FINDINGS: The left ventricle is normal in size. Transient Ischemia Dilatation of 1.1. There is normal left ventricular systolic function. The left ventricular ejection fraction is normal with a value of 75%. There is normal left ventricular wall thickening with no regional wall motion abnormality. Normal end-diastolic end-systolic volumes. IMPRESSIONS 1. Myocardial perfusion imaging is normal. 2. Overall left ventricular systolic function is normal without regional wall motion abnormalities. 3. The left ventricular ejection fraction is normal with a value of 75%. 4. Scan indicates low risk for cardiac events. 5. No significant change when compared to prior study dated 08/12/2018. Shanice Santiago MD (Electronically Signed) Final Date: 19 Sep 2021 14:41 S
[2021-09-17 08:04] VITALS: BMI 19.7
[2021-09-17] MEDS: regadenoson 0.4 Mg/5 ml Syringe IVP (09:22)
[2021-09-17 09:38] VITALS: BP 121/64; PULSE 99
== END 2021-09-17 07:41 | disposition home or self-care (01) ==
PROVIDERS: PCP Physician Assistant; Visit Provider Internal Medicine Cardiovascular Disease
DX: R07.9 Chest pain, unspecified (principal)
CPT/HCPCS: 78452; 93017; A9500; J2785

== ENCOUNTER → 2021-10-08 07:31 | Outpatient (BNVA) | payer MEDICARE, SELFPAY | PROVIDERS: PCP Physician Assistant; Visit Provider Internal Medicine | DX: M54.50 Low back pain, unspecified (principal); M81.0 Age-related osteoporosis without current pathological fracture; Z90.710 Acquired absence of both cervix and uterus; Z98.890 Other specified postprocedural states; Z87.891 Personal history of nicotine dependence | CPT/HCPCS: 99204; 99213 ==

== ENCOUNTER → 2021-10-21 08:32 | Outpatient (BNVA) | payer MEDICARE, SELFPAY | PROVIDERS: PCP Physician Assistant; Visit Provider Internal Medicine | DX: M81.0 Age-related osteoporosis without current pathological fracture (principal); Z90.710 Acquired absence of both cervix and uterus; Z98.890 Other specified postprocedural states; Z87.891 Personal history of nicotine dependence | CPT/HCPCS: 99214 ==

== ENCOUNTER → 2021-10-28 09:28 | Outpatient (BNVA) | payer MEDICARE, SELFPAY | PROVIDERS: PCP Physician Assistant; Visit Provider Anesthesiology Pain Medicine | DX: G89.29 Other chronic pain (principal); M50.020 Cervical disc disorder with myelopathy, mid-cervical region, unspecified level; M43.12 Spondylolisthesis, cervical region; M54.50 Low back pain, unspecified; M96.1 Postlaminectomy syndrome, not elsewhere classified; M79.2 Neuralgia and neuritis, unspecified; Z87.891 Personal history of nicotine dependence; Z79.891 Long term (current) use of opiate analgesic | CPT/HCPCS: 99214 ==

== ENCOUNTER → 2021-12-23 10:24 | Outpatient (BNVA) | payer MEDICARE, SELFPAY | PROVIDERS: PCP Physician Assistant; Visit Provider Internal Medicine | DX: M81.0 Age-related osteoporosis without current pathological fracture (principal); Z98.890 Other specified postprocedural states; Z90.710 Acquired absence of both cervix and uterus; Z87.891 Personal history of nicotine dependence | CPT/HCPCS: 99214 ==

== ENCOUNTER → 2022-01-16 09:28 | Outpatient (BNVA) | payer MEDICARE, SELFPAY | PROVIDERS: PCP Physician Assistant; Visit Provider Anesthesiology Pain Medicine | DX: G89.29 Other chronic pain (principal); M50.020 Cervical disc disorder with myelopathy, mid-cervical region, unspecified level; M43.12 Spondylolisthesis, cervical region; M54.50 Low back pain, unspecified; M79.604 Pain in right leg; M79.605 Pain in left leg; M79.2 Neuralgia and neuritis, unspecified; M96.1 Postlaminectomy syndrome, not elsewhere classified; Z87.891 Personal history of nicotine dependence | CPT/HCPCS: 99214 ==

== ENCOUNTER → 2022-04-01 10:36 | Outpatient (BNVA) | payer MEDICARE, SELFPAY | PROVIDERS: PCP Physician Assistant; Visit Provider Anesthesiology Pain Medicine | DX: G89.29 Other chronic pain (principal); M96.1 Postlaminectomy syndrome, not elsewhere classified; M50.020 Cervical disc disorder with myelopathy, mid-cervical region, unspecified level; M43.12 Spondylolisthesis, cervical region; M79.2 Neuralgia and neuritis, unspecified; M79.604 Pain in right leg; M79.605 Pain in left leg; M54.50 Low back pain, unspecified; Z87.891 Personal history of nicotine dependence | CPT/HCPCS: 99214 ==

== ENCOUNTER → 2022-04-21 13:17 | Outpatient (BNVA) | payer MEDICARE, SELFPAY | PROVIDERS: PCP Physician Assistant; Visit Provider Internal Medicine Cardiovascular Disease | DX: R07.9 Chest pain, unspecified (principal); I10 Essential (primary) hypertension; Z87.891 Personal history of nicotine dependence | CPT/HCPCS: 99214 ==

== ENCOUNTER → 2022-06-23 09:03 | Outpatient (BNVA) | payer MEDICARE, SELFPAY | PROVIDERS: PCP Physician Assistant; Visit Provider Internal Medicine | DX: M81.0 Age-related osteoporosis without current pathological fracture (principal); Z90.710 Acquired absence of both cervix and uterus; Z98.890 Other specified postprocedural states | CPT/HCPCS: 99213; 99214 ==

== ENCOUNTER → 2022-07-03 12:40 | Outpatient (BNVA) | payer MEDICARE, SELFPAY | PROVIDERS: PCP Physician Assistant; Visit Provider Nurse Practitioner Family | DX: I20.8 Other forms of angina pectoris (principal); R00.2 Palpitations; Z87.891 Personal history of nicotine dependence | CPT/HCPCS: 93005; 99214 ==

== ENCOUNTER → 2022-07-07 09:39 | Outpatient (BNVA) | payer MEDICARE, SELFPAY | PROVIDERS: PCP Physician Assistant; Visit Provider Anesthesiology Pain Medicine | DX: G89.29 Other chronic pain (principal); M96.1 Postlaminectomy syndrome, not elsewhere classified; M50.020 Cervical disc disorder with myelopathy, mid-cervical region, unspecified level; M43.12 Spondylolisthesis, cervical region; M79.2 Neuralgia and neuritis, unspecified; M54.50 Low back pain, unspecified | CPT/HCPCS: 99214 ==

== ENCOUNTER 2022-08-21 06:37 | Outpatient (CLI) | payer MEDICARE, SELFPAY ==
--- NOTE | 2022-08-21 | ECG_ITS ---
[facility] Test Date: 2022-08-21 Pat Name: Sangeeta Manzanares Department: Room: Gender: Female Registered Representative: : 1955 Requested By: Zari Go Order Number: [id number] Meyers MD: Lalit Hudson M.D. Interpretive Statements NAME OF STUDY: LEXISCAN SESTAMIBI STRESS TEST INDICATION: [WORSENING ANGINA, ] Procedure: At the baseline, the blood pressure was 141/70 mmHg with a heart rate of 67 bpm. The electrocardiogram showed normal sinus rhythm, normal axis with normal ST and T's. The Lexiscan was infused over a period of 20 seconds. A total of 0.4 mg of Lexiscan was infused. The stress phase was continued for a total of 5 minutes. Heart rate was at the end of stress phase was 101 bpm and a blood pressure of 127/63 mmHg. The EKG at the peak infusion revealed normal sinus rhythm with no significant ST-T wave changes. Sestamibi was injected 20 seconds after the Lexiscan infusion. Blood pressure at the end of recovery phase was 137/65mmHg with a heart rate of 97 bpm. Conclusion: 1. Normal EKG response to Lexiscan infusion 2. No Lexiscan induced chest pain or cardiac arrhythmia. 3. Normal blood pressure and heart rate response. 4. Sestamibi/sestamibi perfusion scan pending; see separate report. Electronically Signed On 08-24-2022 15:11:27 CDT by Lalit Hudson M.D. [id number]
[2022-08-21 06:53] VITALS: BMI 23.2
--- NOTE | 2022-08-21 06:55 | NMCV_ITS ---
NM sinan perf SPECT r/s* [id number] Sangeeta Manzanares Age: 66 Gender: F : 1955 Exam Date: 08/21/2022 07:50 Ordering Phys: Zari Go Technologist: YFN Nova Exam Location: [facility] Indications: ANGINA PECTORIS STRESS TEST [facility] IMAGE PROTOCOL Rest/Stress 1 Lexiscan Day Radiopharmaceutical Dose (mCi) Administration Site Administered by Rest: Tc-99m 10.5 IV YFN Etienne Sestamibi Stress:Tc-99m 32.6 IV YFN Etienne Sestamibi Rest: 21-Aug-2022 60 Discovery 630 Stress: 21-Aug-2022 30 Discovery 630 0.4mg Lexiscan. Images obtained in supine and prone position. SPECT RESULTS Technical Quality: Excellent Raw Data Analysis: Normal Image Corrections: No attenuation or motion correction applied Summed Stress Score: 0 Summed Rest Score: 0 Summed Difference Score: 0 PERFUSION FINDINGS SPECT images demonstrate homogeneous tracer distribution throughout the myocardium. FUNCTIONAL RESULTS (calculated via Gated SPECT) Stress Image LV EF (%): 84 Stress EDV (mL):57 TID: 0.82 Stress ESV (mL):9 FUNCTIONAL FINDINGS: There is normal left ventricular systolic function. IMPRESSIONS 1. Normal myocardial perfusion imaging with no evidence of ischemia 2. LV systolic function is normal Lalit Hudson MD (Electronically Signed) Final Date: 21 August 2022 11:32 S
[2022-08-21] MEDS: regadenoson 0.4 Mg/5 ml Syringe IVP (08:51)
[2022-08-21 09:24] VITALS: BP 138/61; PULSE 98
== END 2022-08-21 06:38 | disposition home or self-care (01) ==
PROVIDERS: PCP Physician Assistant; Visit Provider Nurse Practitioner Family
DX: I20.8 Other forms of angina pectoris (principal)
CPT/HCPCS: 36415; 78452; 93017; 96374; A9500; J2785

== ENCOUNTER → 2022-08-25 08:44 | Outpatient (BNVA) | payer MEDICARE, SELFPAY | PROVIDERS: PCP Physician Assistant; Visit Provider Internal Medicine | DX: M81.0 Age-related osteoporosis without current pathological fracture (principal); Z90.710 Acquired absence of both cervix and uterus; Z98.890 Other specified postprocedural states | CPT/HCPCS: 99213 ==

== ENCOUNTER → 2022-10-20 09:05 | Outpatient (BNVA) | payer MEDICARE, SELFPAY | PROVIDERS: PCP Physician Assistant; Visit Provider Anesthesiology Pain Medicine | DX: G89.29 Other chronic pain (principal); M48.061 Spinal stenosis, lumbar region without neurogenic claudication; M50.020 Cervical disc disorder with myelopathy, mid-cervical region, unspecified level; M48.02 Spinal stenosis, cervical region; M43.12 Spondylolisthesis, cervical region; M96.1 Postlaminectomy syndrome, not elsewhere classified; M79.2 Neuralgia and neuritis, unspecified | CPT/HCPCS: 99214 ==

== ENCOUNTER → 2022-11-13 13:37 | Outpatient (BNVA) | payer MEDICARE, SELFPAY | PROVIDERS: PCP Physician Assistant; Visit Provider Internal Medicine Cardiovascular Disease | DX: R07.9 Chest pain, unspecified (principal); I10 Essential (primary) hypertension; G89.29 Other chronic pain; Z98.890 Other specified postprocedural states; M79.2 Neuralgia and neuritis, unspecified; Z87.891 Personal history of nicotine dependence | CPT/HCPCS: 99214 ==

== ENCOUNTER → 2022-12-18 16:10 | Outpatient (BNVA) | payer MEDICARE, SELFPAY | PROVIDERS: PCP Physician Assistant; Visit Provider Internal Medicine | DX: M81.0 Age-related osteoporosis without current pathological fracture (principal); Z90.710 Acquired absence of both cervix and uterus; Z98.890 Other specified postprocedural states | CPT/HCPCS: 36415; 82306; 99214 ==

== ENCOUNTER → 2023-01-20 08:58 | Outpatient (BNVA) | payer MEDICARE, SELFPAY | PROVIDERS: PCP Physician Assistant; Visit Provider Anesthesiology Pain Medicine | DX: M43.12 Spondylolisthesis, cervical region (principal); M50.020 Cervical disc disorder with myelopathy, mid-cervical region, unspecified level; G89.29 Other chronic pain; M96.1 Postlaminectomy syndrome, not elsewhere classified; M79.2 Neuralgia and neuritis, unspecified; M48.061 Spinal stenosis, lumbar region without neurogenic claudication | CPT/HCPCS: 99213 ==

== ENCOUNTER 2023-03-12 08:51 | Outpatient (CLI) | payer MEDICARE, SELFPAY ==
--- NOTE | 2023-03-12 | MR_ITS ---
WS: [id number] MRI HEAD WITH CONTRAST TECHNIQUE: Sagittal T1, T2 axial, T2 axial FLAIR, axial susceptibility weighted imaging, axial diffus ion weighted images, and coronal T2 images were obtained. Pre and post-T1 axial and post T1 coronal i mages. ADC and FSPGR images. CLINICAL INFORMATION: HEADACHE R51.9 COMPARISON: CT 2014 FINDINGS: No evidence restricted diffusion to suggest acute ischemia. Ventricular system and basal cisterns are patent. Moderate small vessel changes. Moderate parenchymal volume loss. Small vessel changes in the tiago. Normal vascular flow voids at the skull base. No extra-axial fluid collections. No evidence of mass or mass effect. No hemosiderin on the susceptibility weighted images. Normal optic chiasm and pituitary infundibulum. Temporal lobes and hippocampal formations are normal in appearance. No abnormal gadolinium enhancement. Mild disc bulging upper cervical spine at C3-C4 wi th mild central canal stenosis. IMPRESSION: 1. No evidence of restricted diffusion to suggest acute ischemia. 2. Moderate small vessel changes with moderate parenchymal volume loss. Small vessel changes in the tiago. 3. Temporal lobes and hippocampal formations are normal in appearance. 4. No hemosiderin on susceptibly weighted images. 5. No abnormal gadolinium enhancement. 6. Normal dural venous sinuses.
[2023-03-12] MEDS: gadobenate dimeglumine 20 mL vial IV (10:18)
== END 2023-03-12 08:52 | disposition home or self-care (01) ==
LOC: RAD 08:51
PROVIDERS: PCP Physician Assistant; Visit Provider Physician Assistant
DX: R51.9 Headache, unspecified (principal)
CPT/HCPCS: 70553; A9577

== ENCOUNTER → 2023-04-22 10:05 | Outpatient (BNVA) | payer MEDICARE, SELFPAY | PROVIDERS: PCP Physician Assistant; Visit Provider Anesthesiology Pain Medicine | DX: M43.12 Spondylolisthesis, cervical region (principal); M50.020 Cervical disc disorder with myelopathy, mid-cervical region, unspecified level; G89.29 Other chronic pain; M96.1 Postlaminectomy syndrome, not elsewhere classified; M79.2 Neuralgia and neuritis, unspecified | CPT/HCPCS: 99214 ==

== ENCOUNTER → 2023-04-27 08:21 | Outpatient (BNVA) | payer MEDICARE, SELFPAY | PROVIDERS: PCP Physician Assistant; Visit Provider Specialist | DX: G56.01 Carpal tunnel syndrome, right upper limb (principal); Z01.818 Encounter for other preprocedural examination; Z46.89 Encounter for fitting and adjustment of other specified devices | CPT/HCPCS: 36415; 73130; 80053; 85025; 97760; 99204; L3908 ==

== ENCOUNTER 2023-04-27 11:18 | Outpatient (CLI) | payer MEDICARE, SELFPAY | END 2023-04-27 11:19 | disposition home or self-care (01) | LOC: SPT 11:19 | PROVIDERS: PCP Physician Assistant; Visit Provider Specialist | DX: Z46.89 Encounter for fitting and adjustment of other specified devices (principal); G56.01 Carpal tunnel syndrome, right upper limb | CPT/HCPCS: 97760; L3908 ==

== ENCOUNTER 2023-05-05 07:53 | Outpatient (CLI) | payer MEDICARE, SELFPAY ==
--- NOTE | 2023-05-05 07:58 | MR_ITS ---
WS: [id number] MRI CERVICAL SPINE NONCONTRAST HISTORY: CERVICAL REGION RADICULOPATHY COMPARISON: 09/06/2019 Technique: Multiplanar, multisequence noncontrast imaging of the cervical spine. Straightening of the normal cervical lordosis. Slight reversal centered at C3-4. Disc spaces are mild ly narrowed. Hypertrophic osteophytes throughout the cervical spine and disc bulging. Mild progressio n of the disc bulging and degenerative disc disease. Signal within the cervical cord is normal. Visualized posterior fossa is unremarkable. Craniocervical junction, C1 and C2 relationship, odontoid process and soft tissues are normal. C2-C3: Mild facet arthritis. No stenosis. C3-C4: Slight increase in size of the central disc protrusion now contacting and slightly displacing the cervical cord posteriorly. Bilateral small foraminal disc osteophyte complexes, RIGHT greater shannon n LEFT. Mild central and bilateral foraminal stenosis. C4-C5: Mild annular disc bulging, osteophytic ridging and facet arthritis. Disc contacts the ventral thecal sac. Mild progression since the prior study. Moderate central with bilateral foraminal stenosi s, RIGHT greater than LEFT. C5-C6: Mild annular disc bulging, osteophytic ridging and facet arthritis. Mild central and bilateral foraminal stenosis. C6-C7: Diffuse annular disc bulging, osteophytic ridging and facet arthritis. Disc osteophyte complex 6 extends into the foramina. RIGHT foraminal disc protrusion is slightly increased in size. Disc pro trusion slightly contacts and deforms the RIGHT lateral thecal sac. Moderate to severe central with b ilateral foraminal stenosis. C7-T1: No stenosis Paraspinal soft tissue are normal. IMPRESSION: 1. Multilevel areas of cervical stenoses due to combination of disc bulging, osteophytes and protrusi ons. Stenoses has increased slightly at several levels. 2. C3-4: Mild central and bilateral foraminal stenosis. 3. C4-5: Moderate central with bilateral foraminal stenosis, RIGHT greater than LEFT. Disc contacts t he ventral cervical cord. 4. C5-6: Mild central and bilateral foraminal stenosis. 5. C6-7: Moderate to severe central with bilateral foraminal stenosis. Proximal RIGHT foraminal disc protrusion has increased in size. Very slight contact on the RIGHT lateral thecal sac extending into the foramen.
== END 2023-05-05 07:54 | disposition home or self-care (01) ==
LOC: RAD 07:53
PROVIDERS: PCP Physician Assistant; Visit Provider Physician Assistant
DX: M54.12 Radiculopathy, cervical region (principal); M48.02 Spinal stenosis, cervical region; M25.78 Osteophyte, vertebrae; M50.223 Other cervical disc displacement at C6-C7 level
CPT/HCPCS: 72141

== ENCOUNTER 2023-05-07 06:20 | Day surgery (SDC) | payer MEDICARE, SELFPAY ==
[2023-05-07] VITALS (10 sets, daily range): BP systolic 131–159; BP diastolic 74–93; PULSE 70–92; RESP 12–18; TEMP 36.1–36.4; O2SAT 95–100
--- NOTE | 2023-05-07 06:30 | ECG_ITS ---
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 Measurements Intervals [place] Rate: 69 P: 70 SD: 128 QRS: 63 QRSD: 89 T: 63 QT: 385 QTc: 414 Interpretive Statements SINUS RHYTHM No previous ECG available for comparison Electronically Signed On 05-08-2023 19:30:51 DIRECTOR ENERGY by Cielo Hyatt M.D. [id number]
[2023-05-07] MEDS: CELEcoxib 200 mg Capsule 400 MG PO ×2 (06:41→07:09)
[2023-05-07] MEDS: gabapentin 300 mg Capsule PO ×2 (06:41→07:09)
[2023-05-07] MEDS: acetaminophen 1,000 MG/100 ML PIGGYBACK 400 MG IV (06:42)
[2023-05-07] MEDS: sodium chloride 0.9% 1,000 ML 30 ML IV (06:42)
--- NOTE | 2023-05-07 07:08 | P.HPUD_ITS ---
Surgery/Procedure H&P Update DATE OF PROCEDURE: May 07, 2023 DATE H&P PERFORMED: 04/27/23 H&P UPDATE INFORMATION: I have reviewed H&P completed within last 30 days, I have examined patient prior to procedure, No changes to prior documentation and H&P is in [facility] EMR on date indicated PLANNED PROCEDURE: Operation Date: 05/07/23 08:00 Proposed Procedures p Right Carpal Tunnel Release(Right) - Rafaela Quinones MD Related Problem List Diagnoses (1) Carpal tunnel syndrome on right:
[2023-05-07 07:10] LABS: Glucose Point of Care 87 mg/dL (70-110)
[2023-05-07] MEDS: ceFAZolin 2,000 MG in sodium chloride 0.9% (plus) 50 ML 100 MG IV (08:00)
--- NOTE | 2023-05-07 08:33 | P.ANESASSM_ITS ---
Pre-Anesthetic Assessment Height/Weight: Height 1.57 m Weight 57.153 kg Temp Pulse Resp BP Pulse Ox O2 Del Method 97 F L 77 18 158/89 97 Room Air 05/07/23 06:27 05/07/23 06:27 05/07/23 06:27 05/07/23 06:27 05/07/23 06:27 05/07/23 06:48 Operation Date: 05/07/23 08:00 Proposed Procedures p Right Carpal Tunnel Release(Right) - Rafaela Quinones MD Familial anesthetic complications: none Was Beta Emil taken within 24 hours: N/A Was Clonidine taken within 24 hours: N/A Last intake: Intake Last Liquid Date 05/06/23 Last Liquid Time 23:00 Last Solid Date 05/06/23 Last Solid Time 23:00 Social No alcohol and No tobacco Exam alert, oriented x 3, clear to auscultation bilaterally and regular rate & rhythm Airway Submandibular: within normal limits Cervical ROM: within normal limits Mallampati: Class II Dentition: false (upper) CV/HEM Conclusion: 1. Normal EKG response to Lexiscan infusion 2. No Lexiscan induced chest pain or cardiac arrhythmia. 3. Normal blood pressure and heart rate response. 4. Sestamibi/sestamibi perfusion scan pending; see separate report. Electronically Signed On 08-24-2022 15:11:27 CDT by Lalit Hudson M.D. GI Gastroesophageal Reflux Disease [facility] Lower Back Pain and Osteoarthritis/DJD Anesthetic Plan ASA status: 3 Anesthesia: Choice Medications/Allergies Home Medications Medication Instructions Recorded Confirmed Last Taken Type budesonide-formoterol HFA 160 2 puff inhalation BID 08/29/19 05/06/23 05/07/23 History mcg-4.5 mcg/actuation aerosol inhaler (Symbicort) bupropion HCl 75 mg tablet 75 mg PO BID 08/29/19 05/06/23 05/06/23 History aspirin 81 mg tablet,delayed 81 mg PO DAILY 12/05/19 05/06/23 04/29/23 History release (Adult Aspirin Regimen) clonidine HCl 0.1 mg tablet 0.1 mg PO BID PRN hypertensive 12/05/19 05/06/23 Unknown History emergency famotidine 40 mg tablet (Pepcid) 40 mg PO DAILY 12/05/19 05/06/23 05/06/23 History Vitamin C 500 mg PO DAILY 06/04/21 05/06/23 05/06/23 History cholecalciferol (vitamin D3) 125 125 mcg PO .weekly 06/04/21 05/06/23 05/01/23 History mcg (5,000 unit) capsule cyclobenzaprine 10 mg tablet 10 mg PO TID PRN muscle spasm #30 01/16/22 05/06/23 Unknown Rx tabs zinc 50 mg tablet 50 mg PO DAILY 01/16/22 05/06/23 05/06/23 History albuterol sulfate 90 mcg/actuation 2 inh inhalation Q6H PRN Shortness 07/03/22 05/06/23 Unknown History breath activated powder inhaler Of Breath Or Wheezing calcium carbonate 200 mg calcium 200 mg PO BID PRN Heartburn 11/13/22 05/06/23 05/05/23 History (500 mg) chewable tablet (Tums) lisinopril 10 mg tablet 10 mg PO DAILY 11/13/22 05/06/23 05/06/23 History nitroglycerin 0.4 mg sublingual 0.4 mg sublingual Q5M PRN Chest 11/13/22 05/06/23 04/06/23 Rx tablet Pain #30 tabs pen needle, diabetic 32 gauge x #100 ea 12/18/22 04/27/23 Unknown Rx 1/4 (BD Ultra-Fine Micro Pen Needle) pantoprazole 20 mg tablet,delayed 20 mg PO DAILY #90 tabs 12/19/22 05/06/23 05/06/23 Rx release isosorbide mononitrate 30 mg 15 mg (1/2 x 30 mg) PO DAILY #45 03/04/23 05/06/23 05/06/23 Rx tablet,extended release 24 hr tabs tramadol 50 mg tablet 50 mg PO BID PRN pain #60 tabs 04/22/23 05/06/23 05/06/23 Rx cock up wrist splint #1 ea 04/27/23 04/27/23 Unknown Rx teriparatide 20 mcg/dose (600 See Rx Instructions .Route 04/30/23 05/06/23 Unknown Rx mcg/2.4 mL) subcutaneous pen .COMPLEX #2.4 mL injector ([employer]) Allergies Allergy/AdvReac Type Severity Reaction Status Date / Time moxifloxacin [From Avelox] AdvReac ITCHING Verified 04/27/23 08:10 Sulfa (Sulfonamide AdvReac ITCHING Verified 04/27/23 08:10 Antibiotics) Current Medications Generic Name Dose Route Start Last Admin Trade Name Freq PRN Reason Stop Dose Admin Sodium Chloride 1,000 mls @ 30 mls/hr 05/07/23 06:30 05/07/23 06:42 Sodium Chloride 0.9% IV 05/08/23 06:29 30 mls/hr .Q24H RAH Administration PFSH Anesthesia Medical History Chronic low back pain Arthritis of lumbar spine Spondylolisthesis of cervical region Cervical disc disorder with myelopathy of mid-cervical region Lumbar post-laminectomy syndrome Neck pain of over 3 months duration Surgical History S/P left hemicolectomy 02/21/20 History of lumbar surgery (11/03/16) Dr. Aguilar L4-L5 hemilaminotomy/discectomy/foraminotomy History of hysterectomy History of surgery on wrist Family History Sister Lung disease Mother Heart disease Diabetes Father Diabetes Social History Smoking and tobacco/nicotine status: former use of tobacco/nicotine Second hand smoke exposure: No Alcohol intake: never Substance/Drug Use: never Lives independently: Yes Household members: spouse Marital status: Current occupational status: retired Data Anesthesia Cardiac Studies: Sestamibi Stress Test (Cardiology) 08/21
[2023-05-07] MEDS: BUPivacaine 0.5% INJ 30 mL INJECTION (08:36)
--- NOTE | 2023-05-07 08:59 | PC.NURSE ---
Tourniquet that was applied to patient's right upper arm caused a skin tear and mild bruising to patient's upper right arm. padding was applied to patients skin under tourniquet for protection. Site cleansed with saline and dressed with telfa and coban so as to not cause further skin irritation.
--- NOTE | 2023-05-07 09:47 | P.OP_ITS ---
Operative Report Date of procedure: May 07, 2023 Pre-op diagnosis: Right carpal tunnel syndrome Post-op diagnosis: Right carpal tunnel syndrome Post-op findings: Significant compression across the carpal canal Procedure done: Right carpal tunnel release Pathology: None Surgeon: Rafaela Quinones MD Senior Software Tester: None Anesthesia: General (Per LMA, ASA 3) Estimated blood loss (mL): 2 Tourniquet time (min): 20 (At 250 mmHg) IV fluids (mL): 600 Urine output (mL): 0 (No Sheridan) Complications: None Findings: Compression of the median nerve through the carpal canal with deformity and discoloration Condition: stable Disposition: same day Brief History: This 67-year-old woman presented to the office with complaints of significant pain in the right hand. She had pain and numbness particularly with writing. The symptoms have been going on for several years, and at the time of presentation, she complained of shooting pain all the way up her right arm. Preoperatively, nerve conduction studies demonstrated chronic multiday level right-sided cervical radiculopathy, but the patient also had right median sensory neuropathy at the wrist consistent with carpal tunnel syndrome. After discussion, the patient wished to proceed with operative intervention. Risks and complications were discussed with her, and consents were signed. Procedure: The patient was brought to the operating theater. General anesthesia per LMA was administered successfully, ASA 3. The tourniquet was elevated to 250 mmHg for a total tourniquet time of 20 minutes. The patient was also given Ancef 2 g preoperatively. The arm was then prepped and draped with DuraPrep in usual fashion with the arm draped free. A surgical pause was performed. At the time, the surgical pause, we confirmed the site and side of surgery. We also confirmed the patient's identity, appropriate and timely administration of preoperative antibiotics and preoperative surgical markings. An incision was then made along the thenar crease. The incision crossed the wr ist joint in a curvilinear fashion. Dissection continued through skin and soft tissues using a scalpel. The palmaris longus was identified along with the transverse carpal ligament. Each of these was released carefully to avoid injury to the median nerve. We were able to dissect gently into the carpal canal which was noted to be quite tight with significant compression across the median nerve. The nerve was visualized and was an hourglass shape. After release, the canal was subsequently palpated to assure there was no bony encroachment upon the canal. There was a quite thickened fibrous tissue within the canal, and this was opened longitudinally as well. The canal was then palpated distally and proximally to assure that my small finger was passed easily without impingement. Finding this to be so, attention was directed to closure. The wound was irrigated with ropivacaine plain. It was then closed with 3-0 nylon in an interrupted mattress fashion. Sterile dressing was then placed consisting of Dermabond, OpSite, fluffed fluffs, sterile soft roll, and an Ravinder wrap. The tourniquet was released after 20 minutes. There were no complications. There were no specimens. The procedure was well tolerated. Plan is the patient will be discharged home. Related Problem List Diagnoses (1) Carpal tunnel syndrome on right:
--- NOTE | 2023-05-07 14:43 | ANE.PACU2 ---
Inpatient post-anesthesia follow up: Airway intact: Yes Vital signs: Temperature 97.6 F Pulse Rate 80 Respiratory Rate 18 Blood Pressure 132/76 Pulse Oximetry 96 Oxygen Delivery Me thod Room Air Oxygen Flow Rate 6 Fraction of Inspir ed Oxygen Hydration adequate: Yes Nausea and vomiting: No Pain level: 3 Mental status: Baseline
== END 2023-05-07 10:34 | disposition home or self-care (01) ==
PROVIDERS: PCP Physician Assistant; Visit Provider Specialist
PROC: (CPT 64721; principal; 2023-05-07 08:00)
DX: G56.01 Carpal tunnel syndrome, right upper limb (principal); K21.9 Gastro-esophageal reflux disease without esophagitis; Z87.891 Personal history of nicotine dependence
CPT/HCPCS: 64721; 36416; 82962; 93005; J0131; J0690; J2405; J2704; J3010; J3490; J7030

== ENCOUNTER → 2023-05-19 10:51 | Outpatient (BNVA) | payer MEDICARE, SELFPAY | PROVIDERS: PCP Physician Assistant; Visit Provider Internal Medicine Cardiovascular Disease | DX: I20.89 Other forms of angina pectoris (principal); I10 Essential (primary) hypertension; M81.0 Age-related osteoporosis without current pathological fracture; Z87.891 Personal history of nicotine dependence | CPT/HCPCS: 99213 ==

== ENCOUNTER → 2023-05-25 08:01 | Outpatient (BNVA) | payer MEDICARE, SELFPAY | PROVIDERS: PCP Physician Assistant; Visit Provider Specialist | DX: G56.01 Carpal tunnel syndrome, right upper limb (principal) | CPT/HCPCS: 99024 ==

== ENCOUNTER → 2023-06-11 08:52 | Outpatient (BNVA) | payer MEDICARE, SELFPAY | PROVIDERS: PCP Physician Assistant; Referring Provider Physician Assistant; Visit Provider Orthopaedic Surgery | DX: M47.22 Other spondylosis with radiculopathy, cervical region | CPT/HCPCS: 72050; 99214 ==

== ENCOUNTER → 2023-06-17 09:21 | Outpatient (BNVA) | payer MEDICARE, SELFPAY | PROVIDERS: PCP Physician Assistant; Visit Provider Anesthesiology Pain Medicine | DX: M48.02 Spinal stenosis, cervical region | CPT/HCPCS: 99214 ==

== ENCOUNTER → 2023-06-22 11:10 | Outpatient (BNVA) | payer MEDICARE, SELFPAY | PROVIDERS: PCP Physician Assistant; Visit Provider Internal Medicine | DX: M81.0 Age-related osteoporosis without current pathological fracture (principal); Z79.899 Other long term (current) drug therapy; Z90.710 Acquired absence of both cervix and uterus; Z98.890 Other specified postprocedural states | CPT/HCPCS: 36415; 82306; 99214 ==

== ENCOUNTER → 2023-07-01 12:47 | Outpatient (BNVA) | payer MEDICARE, SELFPAY | PROVIDERS: PCP Physician Assistant; Visit Provider Anesthesiology Pain Medicine | DX: M47.812 Spondylosis without myelopathy or radiculopathy, cervical region (principal) | CPT/HCPCS: 64490; 64491; 64492; J3490 ==

== ENCOUNTER → 2023-07-15 11:45 | Outpatient (BNVA) | payer MEDICARE, SELFPAY | PROVIDERS: PCP Physician Assistant; Visit Provider Anesthesiology Pain Medicine | DX: M47.812 Spondylosis without myelopathy or radiculopathy, cervical region (principal) | CPT/HCPCS: 64490; 64491; 64492; J3490 ==

== ENCOUNTER 2023-07-21 13:29 | Outpatient (CLI) | payer MEDICARE, SELFPAY ==
--- NOTE | 2023-07-21 14:00 | XR_ITS ---
WS: [id number] SCREENING DEXA SCAN Luminate CLINICAL INFORMATION: oseoporosis COMPARISON: None. FINDINGS: The L1-L4 bone mineral density measures 1.153 g/cm2. This corresponds to a T score score of -0.2 and Z score of 1.7. Left femoral neck bone mineral density measures 0.570 g/cm2. This corresponds to a T score of -3.5 an d Z score of -1.9. Right femoral neck bone mineral density measures 0.559 g/cm2. This corresponds to a T score -3.6of an d Z score of -2.0. Mean femoral neck bone mineral density measures 0.564 g/cm2. This corresponds to a T score of -3.5 an d Z score of -2.0. IMPRESSION: Normal bone mineralization lumbar spine. Osteoporosis femoral necks. Patient's FRAX calculated 10 year probability for major osteoporotic fracture is 49.7% and osteoporot ic hip fracture is 20.8%.
== END 2023-07-21 13:30 | disposition home or self-care (01) ==
LOC: RAD 13:30
PROVIDERS: PCP Physician Assistant; Visit Provider Internal Medicine
DX: Z13.820 Encounter for screening for osteoporosis (principal); M81.0 Age-related osteoporosis without current pathological fracture
CPT/HCPCS: 77080

== ENCOUNTER → 2023-07-22 10:32 | Outpatient (BNVA) | payer MEDICARE, SELFPAY | PROVIDERS: PCP Physician Assistant; Visit Provider Anesthesiology Pain Medicine | DX: M43.12 Spondylolisthesis, cervical region (principal); M50.020 Cervical disc disorder with myelopathy, mid-cervical region, unspecified level; G89.29 Other chronic pain | CPT/HCPCS: 99214 ==

== ENCOUNTER → 2023-08-18 12:38 | Outpatient (BNVA) | payer MEDICARE, SELFPAY | PROVIDERS: PCP Physician Assistant; Visit Provider Anesthesiology Pain Medicine | DX: M47.812 Spondylosis without myelopathy or radiculopathy, cervical region (principal) | CPT/HCPCS: 64633; 64634 ==

== ENCOUNTER → 2023-09-01 12:36 | Outpatient (BNVA) | payer MEDICARE, SELFPAY | PROVIDERS: PCP Physician Assistant; Visit Provider Anesthesiology Pain Medicine | DX: M47.812 Spondylosis without myelopathy or radiculopathy, cervical region (principal) | CPT/HCPCS: 64633; 64634 ==

== ENCOUNTER → 2023-09-16 10:25 | Outpatient (BNVA) | payer MEDICARE, SELFPAY | PROVIDERS: PCP Physician Assistant; Visit Provider Anesthesiology Pain Medicine | DX: M54.2 Cervicalgia (principal); G89.29 Other chronic pain; M54.50 Low back pain, unspecified | CPT/HCPCS: 99214 ==

== ENCOUNTER 2023-09-22 06:43 | Outpatient (CLI) | payer MEDICARE, SELFPAY ==
--- NOTE | 2023-09-22 07:21 | MR_ITS ---
WS: [id number] MRI LUMBAR SPINE NONCONTRAST TECHNIQUE: Sagittal T1, T2 and STIR imaging. Axial T1 and T2 imaging. CLINICAL INFORMATION: LOW BACK PAIN COMPARISON: MRI of 09/10/2021 FINDINGS: Mild lumbar curve. No acute compression. No high-grade central canal stenosis. No acute compression f ractures. Mild central canal stenosis in the cervical spine verification specialist imaging with small disc protrusions at C3-C4 C4-C5 and C6-C7. L1-L2: Mild annular bulging. Mild facet arthropathy. Mild LEFT foraminal narrowing. L2-L3: Central disc protrusion with mild to moderate central canal stenosis. Impingement of the subar ticular recess bilaterally. Mild facet arthropathy. Mild LEFT foraminal narrowing. L3-L4: Mild disc bulging with narrowing of the subarticular recess bilaterally. Spinal canal is paten t. Foramen are patent. LEFT laminoplasty at this level. L4-L5: Mild disc bulge with impingement of the LEFT greater than RIGHT subarticular recess. Mild face t arthropathy. LEFT foraminal protrusion with moderate LEFT and mild RIGHT foraminal narrowing. L5-S1: Mild disc bulging with slight impingement on the traversing S1 nerve roots bilaterally. Prior LEFT laminoplasty. Mild LEFT and no significant RIGHT foraminal narrowing. Visualized pelvic bony structures: Normal. Paravertebral soft tissues: Normal. Small bilateral renal cysts. MR/MR lumbar spine wo con* [id number] IMPRESSION: Overall no significant changes compared to 2021. 1. Mild lumbar curve. No acute compression. 2. Mild to moderate central canal stenosis L2-3 with central disc protrusion a nd impingement of the subarticular recess bilaterally. 3. Prior laminoplasty changes L3-L4 L4-L5 and L5-S1. 4. Impingement subarticular recess at L3-L4 L4-L5 and L5-S1. 5. Moderate LEFT L4-5 and LEFT L5-S1 foraminal narrowing. 6. Mild central canal stenosis in the cervical spine verification specialist imaging with small disc protrusions at C3-C4 C4-C5 and C6-C7. This is similar to the prior MRI 7. Mild disc bulging T11-T12 slight contact of the lower thoracic appears janis lar to previous.
--- NOTE | 2023-09-22 07:21 | USCV_ITS ---
Sangeeta Manzanares Age: 68 Gender: F : 1955 Exam Date: 09/22/2023 07:31 Ordering Phys: Heavenly Kellogg Technologist: ZAK Exam Location: [facility] [place] Indication: screening HISTORY: Diameter (cm) AP x Transverse x Length Velocity (cm/s) Waveform Prox Aorta: 1.40 x 1.70 x 61.10 Triphasic Mid Aorta: 1.30 x 1.30 x 60.00 Triphasic Distal Aorta: 1.20 x 1.40 x 58.00 Triphasic Right Iliac Prox: 1.00 x 1.10 x 109.00 Triphasic Left Iliac Prox: 0.90 x 1.00 x 1.80 Triphasic Stent Prox Landing x x Aneurysmal Sac Max x x Lt Lat Sac Dim Rt Lat Sac Dim Stent Dist Landing x x Right Iliac Stent x x Left Iliac Stent x x Right Renal Art Left Renal Art FINDINGS: Comparison: none available. No evidence of abdominal aortic or bilateral iliac aneurysm. Ectatic abdominal aorta with evidence of atherosclerotic plaque noted. There is evidence of atherosclerotic plaque no significan stenosis in the right common iliac artery. There is evidence of atherosclerotic plaque no significan stenosis in the left common iliac artery. CONCLUSIONS No evidence of abdominal aortic or bilateral iliac aneurysm. Dr. Sabrina Skaggs DO (Electronically Signed) Final Date: 22 Sep 2023 12:02 S
== END 2023-09-22 06:44 | disposition home or self-care (01) ==
LOC: RAD 06:43
PROVIDERS: PCP Physician Assistant; Visit Provider Physician Assistant
DX: M48.061 Spinal stenosis, lumbar region without neurogenic claudication (principal); M48.07 Spinal stenosis, lumbosacral region; Z13.6 Encounter for screening for cardiovascular disorders
CPT/HCPCS: 72148; 76706

== ENCOUNTER → 2023-10-21 10:01 | Outpatient (BNVA) | payer MEDICARE, SELFPAY | PROVIDERS: PCP Physician Assistant; Visit Provider Anesthesiology Pain Medicine | DX: M43.12 Spondylolisthesis, cervical region (principal); M50.020 Cervical disc disorder with myelopathy, mid-cervical region, unspecified level; G89.29 Other chronic pain | CPT/HCPCS: 99214 ==

== ENCOUNTER → 2023-10-29 14:45 | Outpatient (BNVA) | payer MEDICARE, SELFPAY | PROVIDERS: PCP Physician Assistant; Visit Provider Internal Medicine Cardiovascular Disease | DX: I20.89 Other forms of angina pectoris (principal); I10 Essential (primary) hypertension; R00.2 Palpitations; K21.9 Gastro-esophageal reflux disease without esophagitis; Z87.891 Personal history of nicotine dependence | CPT/HCPCS: 99214 ==

== ENCOUNTER → 2023-11-26 07:50 | Outpatient (BNVA) | payer MEDICARE, SELFPAY | PROVIDERS: PCP Physician Assistant; Visit Provider Orthopaedic Surgery | DX: G89.29 Other chronic pain (principal); Z09 Encounter for follow-up examination after completed treatment for conditions other than malignant neoplasm; M48.062 Spinal stenosis, lumbar region with neurogenic claudication; Z01.818 Encounter for other preprocedural examination | CPT/HCPCS: 80053; 81003; 85025; 99214 ==

== ENCOUNTER 2023-12-04 09:26 | Day surgery (SDC) | payer MEDICARE, SELFPAY ==
[2023-12-04] VITALS (13 sets, daily range): BP systolic 125–162; BP diastolic 65–91; PULSE 75–105; RESP 12–19; TEMP 36.1–36.4; O2SAT 92–100; BMI 23.8
--- NOTE | 2023-12-04 09:59 | P.ANESASSM_ITS ---
Pre-Anesthetic Assessment Height/Weight: Height 1.57 m Weight 58.967 kg Temp Pulse Resp BP Pulse Ox O2 Del Method 97.0 F L 75 16 142/86 97 Room Air 12/04/23 09:49 12/04/23 09:49 12/04/23 09:49 12/04/23 09:49 12/04/23 09:49 12/04/23 09:49 Preop Diagnosis: Lumbar stenosis with neurogenic claudication Operation Date: 12/04/23 10:50 Proposed Procedures p L 4-5 Lumbar Spine Decompression Lumbar Decompression(Not Applicable) - Kal Garcia, DO Was Clonidine taken within 24 hours: Yes Last intake: Intake Last Liquid Date 12/03/23 Last Liquid Time 23:00 Last Solid Date 12/03/23 Last Solid Time 17:30 Social No alcohol and No tobacco Exam alert, oriented x 3, clear to auscultation bilaterally and regular rate & rhythm Airway Submandibular: within normal limits Cervical ROM: within normal limits Mallampati: Class II CV/HEM Stable Angina, Coronary Artery Disease and Hypertension Metabolic Hyperlipidemia [facility] [place] [place] Lower Back Pain and Osteoarthritis/DJD Cervical Myelopathy Anesthetic Plan ASA status: 3 Anesthesia: General Medications/Allergies Home Medications Medication Instructions Recorded Confirmed Last Taken Type budesonide-formoterol HFA 160 2 puff inhalation BID 08/29/19 12/04/23 12/04/23 History mcg-4.5 mcg/actuation aerosol inhaler (Symbicort) bupropion HCl 75 mg tablet 75 mg PO BID 08/29/19 12/04/23 12/03/23 History aspirin 81 mg tablet,delayed 81 mg PO DAILY 12/05/19 12/04/23 12/01/23 History release (Adult Aspirin Regimen) clonidine HCl 0.1 mg tablet 0.1 mg PO BID PRN hypertensive 12/05/19 12/04/23 Unknown History emergency famotidine 40 mg tablet (Pepcid) 40 mg PO DAILY 12/05/19 12/04/23 12/03/23 History Vitamin C 500 mg PO DAILY 06/04/21 12/04/23 12/03/23 History cholecalciferol (vitamin D3) 125 125 mcg PO .weekly 06/04/21 12/04/23 12/03/23 History mcg (5,000 unit) capsule lisinopril 10 mg tablet 10 mg PO DAILY 11/13/22 12/04/23 12/03/23 History nitroglycerin 0.4 mg sublingual 0.4 mg sublingual Q5M PRN Chest 11/13/22 12/04/23 12/02/23 Rx tablet Pain #30 tabs pen needle, diabetic 32 gauge x #100 ea 12/18/22 10/21/23 Unknown Rx 1/4 (BD Ultra-Fine Micro Pen Needle) isosorbide mononitrate 30 mg 15 mg (1/2 x 30 mg) PO DAILY #45 03/04/23 12/04/23 12/03/23 Rx tablet,extended release 24 hr tabs cock up wrist splint #1 ea 04/27/23 10/21/23 Unknown Rx pantoprazole 20 mg tablet,delayed 20 mg PO DAILY #90 tabs 05/08/23 12/04/23 12/03/23 Rx release teriparatide 20 mcg/dose (600 20 mcg (0.08 mL) SUBCUT DAILY 90 05/25/23 12/04/23 12/03/23 Rx mcg/2.4 mL) subcutaneous pen days #7.2 mL injector (CloneeDiabetOmics) atrovastatin 10 mg PO 1XD 06/17/23 12/04/23 12/03/23 History tramadol 50 mg tablet 50 mg PO BID PRN pain #60 tabs 10/21/23 12/04/23 12/03/23 Rx Allergies Allergy/AdvReac Type Severity Reaction Status Date / Time moxifloxacin [From Avelox] AdvReac ITCHING Verified 12/04/23 09:43 Sulfa (Sulfonamide AdvReac ITCHING Verified 12/04/23 09:43 Antibiotics) [facility] Anesthesia Medical History Chronic low back pain Arthritis of lumbar spine Spondylolisthesis of cervical region Cervical disc disorder with myelopathy of mid-cervical region Lumbar post-laminectomy syndrome Neck pain of over 3 months duration Surgical History S/P left hemicolectomy 02/21/20 History of lumbar surgery (11/03/16) Dr. Aguilar L4-L5 hemilaminotomy/discectomy/foraminotomy History of hysterectomy History of surgery on wrist Family History Sister Lung disease Mother Heart disease Diabetes Father Diabetes Social History Smoking and tobacco/nicotine status: former use of tobacco/nicotine Second hand smoke exposure: No Alcohol intake: never Substance/Drug Use: never Lives independently: Yes Household members: spouse Marital status: Current occupational status: retired Data Anesthesia Cardiac Studies: Sestamibi Stress Test (Cardiology) 08/21
[2023-12-04] MEDS: sodium chloride 0.9% 1,000 ML 30 ML IV (10:05)
[2023-12-04] MEDS: albuterol 2.5 mg/3 mL Neb INHALATION (10:05)
--- NOTE | 2023-12-04 10:30 | W.PM.OPSUD ---
Surgery/Procedure H&P Update DATE OF PROCEDURE: December 04, 2023 DATE H&P PERFORMED: 11/26/23 H&P UPDATE INFORMATION: I have reviewed H&P completed within last 30 days, I have examined patient prior to procedure and No changes to prior documentation PREOP DIAGNOSIS: Lumbar stenosis with neurogenic claudication PLANNED PROCEDURE: Operation Date: 12/04/23 10:50 Proposed Procedures p L 4-5 Lumbar Spine Decompression Lumbar Decompression(Not Applicable) - Kal Garcia DO
[2023-12-04] MEDS: ceFAZolin 2,000 MG in sodium chloride 0.9% (plus) 50 ML 100 MG IV (10:59)
[2023-12-04] MEDS: lidocaine-epi 1% 20 mL INJ INJECTION (11:27)
--- NOTE | 2023-12-04 11:57 | P.OP_ITS ---
Operative Report Date of procedure: December 04, 2023 Pre-op diagnosis: lumbar stenosis with neurogenic cladication Post-op diagnosis: same Procedure done: 1. L4-5 laminectomy with partial facetectomy 2. revision spine surgery Surgeon: Kal Garcia DO Estimated blood loss (mL): 5 Procedure: 1. L4-5 laminectomy with partial facetectomy 2. revision spine surgery Patient is brought to the operative suite. After undergoing anesthesia they are placed in the prone position. All areas of impingement are well padded. Patient is then prepped and draped in the normal sterile fashion. A skin incision is made over the L4-5 level. This is confirmed under c-arm guidance. A series of dilators are passed and the tubular retractor is docked on the L4 lamina. A bovie is used to clear the soft tissue off the lamina and the L 4/5 facet joint. The previous laminectomy was identifed and scar was pealed off bone with curved currette. A high speed douglas is then used to perform the laminectomy and take down the medial aspect of the L 4/5 facet joint. A kerrison rongeure was then used to take down the remaining lamina and smooth the edge of the laminectomy up to the point where the ligamentum flavum attaches. Attention was then brought to the medial aspect of the facet joint. The remai nandini medial aspect of the superior and inferior aspect of the facet joint were taken down with the kerrison from the pedicle of L4 to L 5. The facet joint had significant hypertrophy. Attention was then brought to the Ligamentum Flavum. The ligament was taken down from the lamina of L4 to L5 and out medially to the remaining facet joint. The ligament was scarred down and thick. The dura was then exposed. The dura was in good repair. The L4 nerve was then traced with a curette out the L4/5 foramen and found to be adequately decompressed. The L5 nerve was traced with a curette around the L5 pedicle. The lateral recess was opened with a kerrison helping to further decompress the L5 nerve. Wound is then irrigated copiously with saline and surgiflo is used to stop any bleeding. The tubular retractor is removed and the wound is closed with vicryl and monocryl suture. Glue is then used to protect the wound. A sterile dressing is then placed. Patient was then placed in the supine position and transferred to the PACU in stable condition.
--- NOTE | 2023-12-04 12:25 | ANE.PACU2 ---
Inpatient post-anesthesia follow up: Airway intact: Yes Vital signs: Temperature 97.4 F Pulse Rate 77 Respiratory Rate 16 Blood Pressure 147/81 Pulse Oximetry 95 Oxygen Delivery Me thod Room Air Oxygen Flow Rate Fraction of Inspir ed Oxygen Hydration adequate: Yes Nausea and vomiting: No Pain level: 4 Mental status: Baseline
[2023-12-04] MEDS: fentaNYL 50 mcg/mL INJ 2mL IVP (12:28)
--- NOTE | 2023-12-04 12:45 | PC.NURSE ---
skin tear on left lower arm. provider notified.
--- NOTE | 2023-12-04 13:09 | XR_ITS ---
WS: [id number] INTRAOPERATIVE TECHNIQUE: 2 Spot fluoroscopic images for intraoperative purposes. FLUOROSCOPY TIME: 5 seconds CLINICAL INFORMATION: or pic, decompression FINDINGS: Localizer projected over L4-5 XR/XR lumbar spine 1V [id number] IMPRESSION: Images obtained for intraoperative purposes.
[2023-12-04] MEDS: HYDROcodone-acetaminophen 5-325 mg Tablet 1 TAB PO (13:10)
== END 2023-12-04 13:20 | disposition home or self-care (01) ==
PROVIDERS: PCP Physician Assistant; Visit Provider Orthopaedic Surgery
PROC: (CPT 63005; principal; 2023-12-04 10:50)
DX: M48.062 Spinal stenosis, lumbar region with neurogenic claudication (principal); I25.10 Atherosclerotic heart disease of native coronary artery without angina pectoris; I10 Essential (primary) hypertension; E78.5 Hyperlipidemia, unspecified; Z87.891 Personal history of nicotine dependence
CPT/HCPCS: 63047; 72020; 76000; J0690; J1100; J2405; J2704; J3010; J3490; J7030; J7613

== ENCOUNTER → 2023-12-24 07:54 | Outpatient (BNVA) | payer MEDICARE, SELFPAY | PROVIDERS: PCP Physician Assistant; Visit Provider Orthopaedic Surgery | DX: Z48.89 Encounter for other specified surgical aftercare (principal) | CPT/HCPCS: 99024 ==

== ENCOUNTER → 2024-01-14 07:48 | Outpatient (BNVA) | payer MEDICARE, SELFPAY | PROVIDERS: PCP Physician Assistant; Visit Provider Orthopaedic Surgery | DX: Z98.890 Other specified postprocedural states (principal) | CPT/HCPCS: 99024 ==

== ENCOUNTER → 2024-02-23 10:24 | Outpatient (BNVA) | payer MEDICARE, SELFPAY | PROVIDERS: PCP Physician Assistant; Visit Provider Orthopaedic Surgery | DX: Z98.890 Other specified postprocedural states; M25.552 Pain in left hip | CPT/HCPCS: 73502; 99024 ==

== ENCOUNTER 2024-04-17 06:00 | Outpatient (RCR) | payer MEDICARE, SELFPAY | END 2024-05-17 23:59 | disposition home or self-care (01) | LOC: MPT 06:00 | PROVIDERS: Visit Provider Orthopaedic Surgery | DX: M54.2 Cervicalgia (principal); M54.9 Dorsalgia, unspecified; G89.29 Other chronic pain | CPT/HCPCS: 97110; 97140; 97162; G0283 ==

== ENCOUNTER 2024-05-18 06:00 | Outpatient (RCR) | payer MEDICARE, SELFPAY | END 2024-06-17 23:59 | disposition home or self-care (01) | LOC: MPT 06:00 | PROVIDERS: Visit Provider Orthopaedic Surgery | DX: M54.2 Cervicalgia (principal); M54.9 Dorsalgia, unspecified; G89.29 Other chronic pain | CPT/HCPCS: 97110; 97140; G0283 ==

== ENCOUNTER → 2024-06-09 08:51 | Outpatient (BNVA) | payer MEDICARE, SELFPAY | PROVIDERS: Visit Provider Orthopaedic Surgery | DX: Z98.890 Other specified postprocedural states (principal) | CPT/HCPCS: 99213 ==

== ENCOUNTER 2024-06-18 06:30 | Outpatient (RCR) | payer MEDICARE, SELFPAY | END 2024-06-28 07:07 | disposition home or self-care (01) | LOC: MPT 06:30 | PROVIDERS: Visit Provider Orthopaedic Surgery | DX: M54.2 Cervicalgia (principal); M54.9 Dorsalgia, unspecified; G89.29 Other chronic pain | CPT/HCPCS: 97110; 97140; G0283 ==

== ENCOUNTER → 2024-08-09 08:30 | Outpatient (BNVA) | payer MEDICARE, SELFPAY | PROVIDERS: PCP Physician Assistant; Visit Provider Internal Medicine | DX: M81.0 Age-related osteoporosis without current pathological fracture (principal); Z90.710 Acquired absence of both cervix and uterus; Z98.890 Other specified postprocedural states | CPT/HCPCS: 99214 ==

== ENCOUNTER → 2024-08-29 08:45 | Outpatient (BNVA) | payer MEDICARE, SELFPAY | PROVIDERS: PCP Physician Assistant; Visit Provider Internal Medicine | DX: M81.0 Age-related osteoporosis without current pathological fracture (principal); Z98.890 Other specified postprocedural states | CPT/HCPCS: 36415; 80053; 82306; 99214 ==

== ENCOUNTER → 2024-09-07 11:47 | Outpatient (BNVA) | payer MEDICARE, SELFPAY | PROVIDERS: PCP Physician Assistant; Visit Provider Internal Medicine Cardiovascular Disease | DX: I20.89 Other forms of angina pectoris (principal); I10 Essential (primary) hypertension; R00.2 Palpitations; K21.9 Gastro-esophageal reflux disease without esophagitis; Z79.82 Long term (current) use of aspirin; Z87.891 Personal history of nicotine dependence; R07.9 Chest pain, unspecified | CPT/HCPCS: 93005; 99214 ==

== ENCOUNTER → 2024-11-17 08:00 | Outpatient (BNVA) | payer MEDICARE, SELFPAY | PROVIDERS: PCP Physician Assistant; Visit Provider Orthopaedic Surgery | DX: M48.062 Spinal stenosis, lumbar region with neurogenic claudication (principal); Z98.890 Other specified postprocedural states | CPT/HCPCS: 72100; 99213 ==

== ENCOUNTER 2024-11-24 07:40 | Outpatient (CLI) | payer MEDICARE, SELFPAY ==
--- NOTE | 2024-11-24 08:00 | MR_ITS ---
WS: [id number] MRI LUMBAR SPINE NONCONTRAST TECHNIQUE: Sagittal T1, T2 and STIR imaging. Axial T1 and T2 imaging. CLINICAL INFORMATION: Back Pain COMPARISON: MRI 2023 FINDINGS: Small disc protrusions in the cervical spine on the safety investigator/cause analyst imaging worse at C3-4. Small central protrusion T11-T12 appears progressed compared to previous with mild central canal stenosis. L1-L2: Minimal disc bulging is stable compared to previous. Moderate facet arthropathy. Mild central canal stenosis with slight narrowing of the LEFT subarticular recess appears stable. Mild LEFT foraminal narrowing. L2-L3: Moderate central canal stenosis appears stable with impingement on the LEFT greater than RIGHT subarticular recess. Moderate facet arthropathy. Mild LEFT foraminal narrowing. L3-L4: Mild disc bulging with impingement on the subarticular recess bilaterally appears stable. Moderate facet arthropathy. Mild residual central canal narrowing. Mild RIGHT foraminal narrowing. L4-L5: Mild annular bulging. Slight impingement of the subarticular recess bilaterally. Moderate facet arthropathy. Spinal canal is patent. Moderate LEFT foraminal narrowing is stable. L5-S1: Mild disc bulging impinges the traversing S1 nerve roots bilaterally in the subarticular recess. Moderate facet arthropathy. Mild LEFT greater than RIGHT foraminal narrowing. Visualized pelvic bony structures: Normal. Paravertebral soft tissues: Normal. Tiny bilateral renal cysts. MR/MR lumbar spine wo con* [id number] IMPRESSION: 1. Small central protrusion T11-T12 appears progressed compared to previous with mild central canal stenosis. 2. Moderate central canal stenosis L2-3 with central disc bulging combination with facet arthropathy and ligamentum flavum hypertrophy. Impingement on the L EFT subarticular recess and traversing LEFT L3 nerve root. This is similar to p revious. 3. Prior postoperative changes laminectomy defects L3-L5. No recurrent high-gr kori stenosis. 4. Mild central canal stenosis L3-4 narrowing of the subarticular recess bilat erally similar to previous. Moderate facet arthropathy. 5. Slight narrowing of the subarticular recess L4-5 appears stable. Moderate L EFT foraminal narrowing L4-5 appears stable 6. Disc bulging L5-S1 impinges the traversing S1 nerve roots bilaterally simil ar to previous. Associated moderate facet arthropathy. 7. Prior laminoplasty L3-L5.
== END 2024-11-24 07:41 | disposition home or self-care (01) ==
PROVIDERS: PCP Physician Assistant; Visit Provider Orthopaedic Surgery
DX: M54.9 Dorsalgia, unspecified (principal); M48.061 Spinal stenosis, lumbar region without neurogenic claudication; M50.21 Other cervical disc displacement, high cervical region; M51.24 Other intervertebral disc displacement, thoracic region; M51.360 Other intervertebral disc degeneration, lumbar region with discogenic back pain only; M96.1 Postlaminectomy syndrome, not elsewhere classified; M46.96 Unspecified inflammatory spondylopathy, lumbar region; M51.370 Other intervertebral disc degeneration, lumbosacral region with discogenic back pain only
CPT/HCPCS: 72148

== ENCOUNTER → 2024-12-01 08:27 | Outpatient (BNVA) | payer MEDICARE, SELFPAY | PROVIDERS: PCP Family Medicine; Visit Provider Orthopaedic Surgery | DX: M48.062 Spinal stenosis, lumbar region with neurogenic claudication (principal); Z01.818 Encounter for other preprocedural examination; Z98.890 Other specified postprocedural states; G89.29 Other chronic pain | CPT/HCPCS: 36415; 80053; 81001; 85025; 99213 ==

== ENCOUNTER → 2025-02-09 08:33 | Outpatient (BNVA) | payer MEDICARE, SELFPAY | PROVIDERS: PCP Family Medicine; Visit Provider Orthopaedic Surgery | DX: M81.0 Age-related osteoporosis without current pathological fracture (principal); M48.062 Spinal stenosis, lumbar region with neurogenic claudication; Z90.710 Acquired absence of both cervix and uterus; Z98.890 Other specified postprocedural states; E55.9 Vitamin D deficiency, unspecified; E87.1 Hypo-osmolality and hyponatremia | CPT/HCPCS: 36415; 82306; 82310; 83970; 99214 ==

== ENCOUNTER 2025-03-15 11:23 | Inpatient (IN) | payer MEDICARE, SELFPAY ==
[2025-03-15] VITALS (20 sets, daily range): BP systolic 106–152; BP diastolic 62–83; PULSE 67–113; RESP 12–18; TEMP 36.2–36.8; O2SAT 95–100; BMI 22.8
--- NOTE | 2025-03-15 | XR_ITS ---
WS: [id number] Exam: XR lumbar spine 2-3V* [id number] Date/Time of Exam: 03/15/2025 12:00 AM Reason For Exam: HELIO IMAGES DLP: Intraoperative C-arm images of the lower lumbar spine are submitted. Images depict posterior fusion extending from L3-S1. L5-S1 spacer. Images were obtained for intraoperative visualization purposes.
--- NOTE | 2025-03-15 06:47 | W.PM.OPSUD ---
Surgery/Procedure H&P Update DATE OF PROCEDURE: March 15, 2025 DATE H&P PERFORMED: 02/09/25 H&P UPDATE INFORMATION: I have reviewed H&P completed within last 30 days, I have examined patient prior to procedure and No changes to prior documentation PREOP DIAGNOSIS: Lumbar stenosis with neurogenic claudication PLANNED PROCEDURE: Operation Date: 03/15/25 07:00 Proposed Procedures p Spinal Fusion PSF(Not Applicable) - Kal Garcia DO s Lumbopelvic Fixation(Not Applicable) - DO aggie Allen Sacroiliac Joint Fusion SI Joint Fusion(Bilateral) - DO aggie Allen Lumbar Spine Decompression Lumbar Decompression(Not Applicable) - Kal Garcia DO
[2025-03-15] MEDS: ceFAZolin 2,000 mg SDV 2000 MG IVP ×2 (07:02→19:53)
--- NOTE | 2025-03-15 07:47 | ANES.PREANE2 ---
Pre-Anesthetic Assessment Height/Weight: Height 1.57 m Weight 56.699 kg Temp Pulse Resp BP Pulse Ox O2 Del Method 97.2 F L 74 18 152/79 99 Room Air 03/15/25 06:07 03/15/25 06:07 03/15/25 06:07 03/15/25 06:07 03/15/25 06:07 03/15/25 06:07 Preop Diagnosis: Lumbar stenosis with neurogenic claudication Operation Date: 03/15/25 07:00 Proposed Procedures p Spinal Fusion PSF(Not Applicable) - Kal Garcia DO s Lumbopelvic Fixation(Not Applicable) - Kal Garcia DO s Sacroiliac Joint Fusion SI Joint Fusion(Bilateral) - Kal Garcia DO s Lumbar Spine Decompression Lumbar Decompression(Not Applicable) - Kal Garcia DO Was Beta Emil taken within 24 hours: N/A Was Clonidine taken within 24 hours: N/A Last intake: Intake Last Liquid Date 03/14/25 Last Liquid Time 21:00 Last Solid Date 03/14/25 Last Solid Time 21:00 Social No alcohol and No tobacco Exam alert, oriented x 3, clear to auscultation bilaterally and regular rate & rhythm Airway Submandibular: within normal limits Cervical ROM: within normal limits Mallampati: Class II Dentition: full History/ROS No significant history except as noted and No significant complaints Pulmonary Chronic Obstructive Pulmonary Disease CV/HEM Stable Angina and Hypertension CP related to GERD per cardiology None reported Hepatic None reported GI Gastroesophageal Reflux Disease Metabolic None reported Musc/skel Lower Back Pain and Osteoarthritis/DJD Neuropsych None reported Anesthetic Plan ASA status: 3 Anesthesia: Anesthesia Evaluation and General Risk of > 500 ml blood loss (7ml/kg in children): No Medications/Allergies Home Medications ?Medication ?Instructions ?Recorded ?Confirmed ?Last Taken ?Type budesonide-formoterol HFA 160 2 puff inhalation BID 08/29/19 03/15/25 03/15/25 History mcg-4.5 mcg/actuation aerosol inhaler (Symbicort) aspirin 81 mg tablet,delayed 81 mg PO DAILY 12/05/19 03/15/25 03/07/25 History release (Adult Aspirin Regimen) lisinopril 10 mg tablet 10 mg PO DAILY 11/13/22 03/15/25 03/14/25 History cock up wrist splint #1 ea 12/11/23 09/25/25 Unknown Rx tramadol 50 mg tablet 50 mg PO BID PRN pain #60 tabs 10/21/23 03/15/25 03/14/25 Rx bupropion HCl 75 mg tablet 100 mg PO BID 09/07/24 03/15/25 03/14/25 07:00 History pen needle, diabetic 32 gauge x #100 ea 10/14/24 02/09/25 Unknown Rx 1/4 Bone Growth Stimulator #1 ea 12/14/24 02/09/25 Unknown Rx atorvastatin 10 mg tablet (Lipitor) 10 mg PO DAILY 12/21/24 03/15/25 03/14/25 History azelastine 137 mcg (0.1 %) nasal 2 spray intranasal BID 12/21/24 03/15/25 03/13/25 08:00 History spray cetirizine 10 mg tablet 10 mg PO DAILY PRN Allergy Symptoms 12/21/24 03/15/25 03/14/25 07:00 History famotidine 40 mg tablet 40 mg PO DAILY 12/21/24 03/15/25 03/14/25 History multivitamin (Daily Multi-Vitamin 1 tab PO DAILY 12/21/24 03/15/25 03/14/25 History tablet) pantoprazole 40 mg tablet,delayed 40 mg PO DAILY 30 days #30 tabs 12/29/24 03/15/25 03/14/25 Rx release teriparatide 20 mcg/dose (560 See Rx Instructions .Route 02/09/25 02/09/25 Unknown Rx mcg/2.24 mL) subcutaneous pen .COMPLEX #9.6 mL injector (RicebookeNetBeez) Allergies Allergy/AdvReac Type Severity Reaction Status Date / Time moxifloxacin (From Avelox) AdvReac ITCHING Verified 03/14/25 11:18 Sulfa (Sulfonamide AdvReac ITCHING Verified 03/14/25 11:18 Antibiotics) Current Medications Generic Name Dose Route Start Last Admin Trade Name Freq PRN Reason Stop Dose Admin Sodium Chloride 1,000 mls @ 30 mls/hr 03/15/25 06:00 03/15/25 06:55 Sodium Chloride 0.9% IV 03/16/25 05:59 30 mls/hr .Q24H RAH Administration PFSH Anesthesia Medical History Chronic low back pain Arthritis of lumbar spine Spondylolisthesis of cervical region Cervical disc disorder with myelopathy of mid-cervical region Lumbar post-laminectomy syndrome Neck pain of over 3 months duration Surgical History S/P left hemicolectomy 02/21/20 History of lumbar surgery (11/03/16) Dr. Aguilar L4-L5 hemilaminotomy/discectomy/foraminotomy History of hysterectomy History of surgery on wrist Family History Sister Lung disease Mother Heart disease Diabetes Father Diabetes Social History Smoking and tobacco/nicotine status: never used tobacco/nicotine Second hand smoke exposure: No Alcohol intake: never Substance/Drug Use: never Lives independently: Yes Household members: spouse Marital status: Current occupational status: retired Data Anesthesia Cardiac Studies: Sestamibi Stress Test (Cardiology) 08/21/22
[2025-03-15] MEDS: heparin, porcine 1,000 unit/mL INJ 10 mL 10000 UNIT IRRIGATION (08:27)
[2025-03-15] MEDS: lidocaine-epi 1% 20 mL INJ INJECTION (08:27)
--- NOTE | 2025-03-15 08:55 | SUR.OPER ---
attempted to notify daughter of surgical progress. no answer.
[2025-03-15] MEDS: fentaNYL 50 mcg/mL INJ 2mL IVP (11:22)
--- NOTE | 2025-03-15 11:32 | PM.OP ---
Operative Report Date of procedure: March 15, 2025 Pre-op diagnosis: Lumbar stenosis neurogenic claudication Post-op diagnosis: same Procedure done: 1. L5/S1 Interbody fusion with posterolateral fusion 2. Interbody cage placed at L5-S1 3. L3 to pelvis fusion 4. L3-S1 posterior spine instrumentation 5. Lumbopelvic instrumentation 6. Open SI joint fusion on the right 7. Open SI joint fusion on the left 8. Use of computer navigation stereotactic for spine 9. Bone marrow aspirate from right iliac crest 10. L3/4 laminectomy and partial facetectomies 11. L4/5 laminectomy with partial facetectomy 12. L5/S1 laminectomy with partial facetectomies 13. Use of allograft Surgeon: Kal Garcia DO Estimated blood loss (mL): 300 Procedure: 1. L5/S1 Interbody fusion with posterolateral fusion 2. Interbody cage placed at L5-S1 3. L3 to pelvis fusion 4. L3-S1 posterior spine instrumentation 5. Lumbopelvic instrumentation 6. Open SI joint fusion on the right 7. Open SI joint fusion on the left 8. Use of computer navigation stereotactic for spine 9. Bone marrow aspirate from right iliac crest 10. L3/4 laminectomy and partial facetectomies 11. L4/5 laminectomy with partial facetectomy 12. L5/S1 laminectomy with partial facetectomies 13. Use of allograft Patient brought to the operative suite after undergoing anesthesia was placed in the prone position. All areas impingement well-padded. Patient is prepped and draped in normal sterile fashion. Skin incisions made using the previous skin incision extending slightly above and below. The thoracolumbar fascia was split and subperiosteal dissection was made out to the transverse process of L3 to L5 bilaterally as well as the sacral ala bilaterally. Sacrum and SI joints were dissected out as well. Next attension was was brought to the bone marrow aspirate. This was done by using the [employer] cell bone marrow aspiration kit. The iliac crest was identified and through a separate incision through the fascia and the bone marrow aspiration kit was inserted into the right iliac crest. Bone marrow aspirate was taken 20 cc. This was mixed with the allograft. Next attention was brought to placing the fiducial for the C-arm. This is going to be used for the computer navigation. 2 pins were placed into the right iliac crest which were later moved to the end of the case. The fiducial was attached. C-arm was brought in and then spun around the patient. The information from C arm was then later used after is loaded the computer for the placement of pedicle screws. Next attention was brought to placing the pedicle screws. This was done L3 bilaterally L4 bilaterally, L5 bilaterally and S1 bilaterally. The computer navigated awl was inserted into the pedicle. Followed by the pedicle feeler. Followed by placement of the screws using the computer navigation. At all these levels. Next attention was placing the iliac screws. This was done using the computer navigated awl. This is placed through the ala across the SI joint into the iliac crest. Then followed by the pedicle feeler. Followed by computer navigated tap. 80 mm 9.5 millimeter pedicle screws were then placed into the iliac crest. This was done bilaterally. Next attention was brought to the open SI joint fusions. This was done by using the computer navigated awl crossing the SI joint. Through direct visualization as well. The pedicle feeler was used to make sure was crossed no breaches. The canal was then filled with bone graft. And then a computer navigated SI joint fusion screws placed across the SI joint. This process was done on both the right and the left side. Once all the screws were placed attention was then brought to doing the laminectomy at L3-4. Patient had previous laminectomies performed on the right side. At this point the spinous process was taken down at L3-4. High-speed bur was used to take down the laminectomy. The facet joints were also taken down using the high-speed bur burring completely out so that the L3 nerves were identified. The facet was taken down and the medial aspect of the facet up to the pedicle was taken down bilaterally of the L4 pedicle. Using Kerrison rongeur. Ligamentum flavum was taken down as far as the kidney there was scarring. However the dura was completely opened and felt to be adequately decompressed. The L3 nerves were traced around the L3 pedicle out where the foramen was in the L4 nerves were traced around the L4 pedicles. Next attention was brought to the L4-5 level. The lamina was identified in the scar tissue. Facet joint was taken down high-speed bur was was the lamina. The L for nerve was traced at the L4/5 foramen and the L5 nerve was traced around the L5 pedicle. Laminectomy was then performed L5-S1. Again the high-speed bur was used to take down the lamina of L5 the facet joints were taken down with a high-speed bur curved curette and Kerrisons were used to take the remaining bone down the ligament flavum was taken down from L5-S1. S1 nerve was traced around the S1 pedicle as the L5 nerve roots were traced out the L5-S1 foramen. The S1 nerve root was then reflected medially on the left side. Discectomy was performed using a knife followed by wiliam. Wiliam were used starting at size [address] up to size 9. A size 10 trial was used felt to be good size cage and then a size 10 Missy cage was inserted into the L5-S1 disc space. This was then tamped into good position on the vertebral body which is confirmed under C-arm guidance. Wounds were then irrigated. The radha was then attached from L3, L4, L5, S1 and into the iliac screw completing the lumbopelvic fixation. This was done bilaterally. The screw caps were then torqued into position. This was done bilaterally. Next attention was brought to decorticating the transverse processes of L3 bilaterally L4 bilaterally L5 bilaterally and sacral ala bilaterally as well as the SI joints. Osteoamp bone graft was then packed into the gutters. And across the SI joint. Vancomycin powder and tobramycin was mixed with calcium sulfate beads packed into the wound was placed deep drain was placed and wound was closed in layered fashion with Vicryl and Monocryl. Sterile dressings were applied patient was transferred to the PACU in stable condition.
--- NOTE | 2025-03-15 11:50 | ANE.PACU2 ---
Inpatient post-anesthesia follow up: Airway intact: Yes Vital signs: Temperature 97.8 F Pulse Rate 98 Respiratory Rate 18 Blood Pressure 115/67 Pulse Oximetry 100 Oxygen Delivery Me thod Nasal Cannula Oxygen Flow Rate 2 Fraction of Inspir ed Oxygen Hydration adequate: Yes Nausea and vomiting: No Pain level: 1 Mental status: Baseline
[2025-03-15] MEDS: HYDROcodone-acetaminophen 5-325 mg Tablet PO ×2 (17:20→22:43)
[2025-03-16] VITALS (7 sets, daily range): BP systolic 95–122; BP diastolic 56–87; PULSE 81–103; RESP 16–18; TEMP 36.3–36.6; O2SAT 93–98
[2025-03-16] MEDS: ceFAZolin 2,000 mg SDV 2000 MG IVP (04:46)
[2025-03-16] MEDS: ATORVASTATIN 10 MG TABLET PO (04:47)
[2025-03-16] MEDS: multivitamin therapeutic Tablet 1 TAB PO (04:47)
[2025-03-16] MEDS: HYDROcodone-acetaminophen 5-325 mg Tablet PO (08:29)
--- NOTE | 2025-03-16 09:51 | PM.DCS ---
Discharge Providers Date of Admission: 03/15/25 11:23 Date of Discharge: March 16, 2025 Attending Provider at Admission: Kal Garcia DO Attending Provider at Discharge: Kal Garcia DO Primary Care Provider: Kofi Dela Cruz MD Reason for Visit Reason for Visit: Z98.890 Physical Exam Narrative: Patient sitting in chair comfortably. About to work with physical therapy. Urinary Catheter Management: Sheridan: Cath Placed During This Visit: yes Reason for Continuing Indwelling Catheter: Perioperative Use in Selected Surgeries Urinary Catheter Date of Insertion: 03/15/25 Urinary Catheter Time of Insertion: 07:15 Discharge Data Studies Completed and Pending Pending at discharge Category Date Time Status C-arm Fluoroscopy 52802 Routine Exams 03/15/25 05:46 Ordered Vitals Last Vital Signs Temp 97.8 F 03/16/25 07:43 Pulse 82 03/16/25 08:55 Resp 16 03/16/25 08:55 BP 111/66 03/16/25 07:43 Pulse Ox 96 03/16/25 08:55 O2 Del Method Room Air 03/16/25 08:55 O2 Flow Rate 2 03/15/25 19:49 Discharge Plan Discharge Patient Disposition: Home Condition: Stable Prescriptions: New hydrocodone-acetaminophen 5-325 mg tablet 1 - 2 tab PO .Q4-6H Qty: 40 0RF Continued budesonide-formoterol [Symbicort] 160-4.5 mcg/actuation HFA aerosol inhaler 2 puff INHALATION BID bupropion HCl 75 mg tablet 100 mg PO BID lisinopril 10 mg tablet 10 mg PO DAILY (DME) cock up wrist splint See Rx Instructions .Route .MEDSUPPLY Qty: 1 0RF Rx Instructions: As directed multivitamin [Daily Multi-Vitamin] Tablet 1 tab PO DAILY cetirizine 10 mg tablet 10 mg PO DAILY PRN (Reason: Allergy Symptoms) atorvastatin [Lipitor] 10 mg tablet 10 mg PO DAILY famotidine 40 mg tablet 40 mg PO DAILY azelastine 137 mcg (0.1 %) spray,non-aerosol 2 spray intranasal BID Rx Instructions: administer into each nostril (DME) pen needle, diabetic 32 gauge x 1/4 needle See Rx Instructions .ROUTE .MEDSUPPLY Qty: 100 3RF Rx Instructions: As directed (DME) Bone Growth Stimulator See Rx Instructions .Route .MEDSUPPLY Qty: 1 0RF Rx Instructions: As directed pantoprazole 40 mg tablet,delayed release (DR/EC) 40 mg PO DAILY 30 Days Qty: 30 0RF Held aspirin [Adult Aspirin Regimen] 81 mg tablet,delayed release (DR/EC) 81 mg PO DAILY Hold Instructions: Resume on 03/17/25. Discontinued tramadol 50 mg tablet 50 mg PO BID PRN (Reason: pain) Qty: 60 2RF Discharge Diet: Advance as tolerated Discharge Activity: Limit activity as instructed Patient Instructions: Acute Wound Care (DC), Opioid Safety, Post Anesthesia Care, Patient Portal & Naun Instructions Activity Restrictions/Additional Instructions: Thank you for choosing [facility] for your care! The following is a list of instructions, from your provider, to follow upon your discharge to ensure you have the optimal recovery from your recent injury or surgery. Follow-up care is a rueda part of your treatment and safety. Be sure to make and go to all appointments, and call your doctor if you are having problems. If you do not already have a follow-up appointment made, call Dr. Garcia's office in the next 1-3 days to make follow up appointment for 1 weeks at [phone]. It is also a good idea to know your test results and keep a list of the medicines you take. Medications will be prescribed for you at your provider?s discretion. These medications are to be used as instructed;if they are taken more often that prescribed they will not be refilled early and in most cases will not be refilled at all. > When a refill is needed,you should contact our office 2-3 business days beforeyour prescription runs out. Medications will NOTbe refilled by client relationship executive providers after hours! > Many pain medications contain Tylenol (Acetaminophen). Do not consume more than 4,000 mg of Tylenol per day in total with any combination of medications. > Pain medications can cause constipation. Please use an over the counter stool softener as directed, while taking pain medications. Consult your local pharmacist with questions or recommendations on stool softeners. If constipation persists, contact our office or your primary care provider. > While under our care,you are not to receive pain medications or other controlled substances from any other provider unless our office is notified and approves. Any attempts to do so will result in refusal to prescribe any further pain medications and possible dismissal from our practice. ? Keep dressing on for 4-week will change in the clinic in 1 week. ? Showering is permitted, however we ask that you do not take a bath, sit in a whirlpool / Jacuzzi, or go swimming for 1 month. For only the first 2 days after surgery, lt wilt be necessary for you to cover your wound/dressing with plastic and tape to keep it dry. ? Walking is essential for the healing process after surgery. We would like you to slowly advance your walking. This should be done on relatively flat clear ground (inside or out) or can be done on a treadmill. Remember this goal does not have to happen all at once, slowly increase your distance and duration. This can be broken into more more than one walk per day as tolerated. Patients who walk as directed after surgery rarely require Physical Therapy. In the unlikely event this issue arises your provider will direct hospital staff to make the appropriate arrangements. ? No lifting over 5 pounds {a gallon of milk) or bending/twisting until further notice. Each of these activities places an unnecessary amount of stress onto the body and can impede the delicate healing process. > Instead of bending at the waist, keep your back straight and bend at the knees. > Instead of twisting your torso, keep your back straight and turn your entire body with your feet. ? You may sleep in any position which makes you comfortable.Many patients find comfort sleeping in a reclining chair. It is not abnormal to have difficulty sleeping for the first several weeks following your surgery. We recommend trying Benadryl or Tylenol PM as directed to help with your sleeping difficulties. Both medications are over the counter and available without prescription. ? NO SMOKING!!!Smoking dramatically increases the probability of developing postoperative wound infections. ? Common complaints after lumbar and/or thoracic spine surgery include, but are not limited to: numbness and/or tingling in the legs, pain around the incision and surrounding tissues, muscle spasms, or stiffness of the middle to low back. Contact our office if these symptoms persist or if an acute change occurs. ? No driving for the first 3-5 days, and not while taking narcotics until seen at your follow-up appointment and cleared.There are no restrictions for riding on short trips, however if you take a longer trip, arrangements should be made to make regular stops to get out of the vehicle and stretch . ? Swelling is an unfortunate event that will take place with any surgery and is the primary source of your postoperative discomfort. While walking and regular approved activities helps control inflammation, there are additional steps you can take to minimize swelling. > Place ice over the surgical site and surrounding tissue for twenty minutes, followed by applying a low/medium heat (heating pad) for an additional twenty minutes every 1-2 hours as needed for pain relief. > You may use of over the counter anti-inflammatory medications (Ibuprofen, Motrin, Aleve, Advil, etc) as directed on the package label. These types of medicines will significantly reduce the amount of discomfort you experience after surgery from swelling. It should be noted that if you have an allergy to any of these medications, or a history of ulcers or kidney disease you should consult your primary care provider prior to starting these medications. Discharge Attestations Time Spent in Discharge Care*: less than 30 min Quality Metrics Clinical Quality Measures [ No reported AMI, CVA or VTE this stay] Coding Level of Care Code Acute Code for Chg Mariah
--- OUTSIDE RECORDS SUMMARY | 2025-03-16 10:49 | XMS_ITS | Clinical Summary ---
Author Organization [facility] Address [address] [place] [address] Care Team Providers Care Flyer Repairer Name Role Phone Unavailable Primary Care Provider Unavailabl e Allergies Active Allergy Reactions Criticality Noted Date Comments Moxifloxacin Itching 01/03/2014 Sulfa (Sulfonamide Antibiotics) Itching 12/16 Medications venlafaxine (EFFEXOR XR) 37.5 mg Extended Release 24 hour capsule Take 37.5 mg by mouth daily. 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 Gender Identity Not on file Sexual Orientation Not on file Last Filed Vital Signs Vital Sign Reading Time Taken Comments Blood Pressure 160/70 01/03/2014 11:34 AM CDT Pulse 72 01/03/2014 11:34 AM CDT Temperature 35.9 C (96.7 F) 01/03/2014 11:34 AM CDT Respiratory Rate 20 01/03/2014 11:34 AM CDT Oxygen Saturation - - Inhaled Oxygen Concentration - - Weight 53.5 kg (118 lb) 01/03/2014 11:34 AM CDT Height 162.6 cm (5' 4 ) 01/03/2014 11:34 AM CDT Body Mass Index 20.25 01/03/2014 11:34 AM CDT Plan of Treatment Health Maintenance Due Date Last Done Comments DTAP/TDAP/TD VACCINES (1 - Tdap) 09/09/1974 BREAST CANCER SCREENING 1995 COLORECTAL SCREENING 09/09/2000 Colorectal Cancer Screening 09/09/2000 FIT-DNA Q 3 years 09/09/2000 FIT/FOBT Q 1 year 09/09/2000 Flex Sig/CT Colonography Q 5 years 09/09/2000 PNEUMOCOCCAL VACCINE 50+ YEARS (1 of 1 - PCV) 09/10/19 06 ZOSTER VACCINE (1 of 2) 09/09/2005 OSTEOPOROSIS SCREENING 09/09/2020 INFLUENZA VACCINE (#1) 2024 RSV VACCINE (60+ or ) (1 - 1-dose 75+ series) 09/09/2030
--- OUTSIDE RECORDS SUMMARY | 2025-03-16 10:49 | XMS_ITS | Clinical Summary ---
[email or web address] Address [address] [facility] Attn: Epic Prelude ADT [place] [id number] Care Team Providers Care Associate Professor Of Media Arts Name Role Phone Unavailable Primary Care Provider Unavailabl e Allergies Active Allergy Reactions Criticality Noted Date Comments Moxifloxacin Itching 01/03/2014 Sulfa (Sulfonamide Antibiotics) Itching 12/16 Social History Tobacco Use Types Packs/Day Years Used Date Smoking Tobacco: Former Smokeless Tobacco: Never Alcohol Use Standard Drinks/Week Comments No 0 (1 standard drink = 0.6 oz pur e alcohol) Comments Unknown Sex and Gender Information Value Date Recorded Sex Assigned at Not on file 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
--- OUTSIDE RECORDS SUMMARY | 2025-03-16 10:49 | XMS_ITS | Patient Health Record ---
Author Organization [facility] Address [address] [facility] [address] Care Team Providers Care Manager Of Recruiting Name Role Phone SYMONE ELDER MD Primary Care Provider Unavail able TateLakesha mckenzie Unavailable [phone] Ida Pineda Unavailable Allergies Allergen (clinical drug ingredient) Drug/Non Drug Allergy documented on EMR Reaction Allergy Type Onset Date Status moxifloxacin Avelox Unknown Drug Allergy Acti ve Substance with sulfonamide structure and antibacterial mechanism of action (substance) Sulfa Antibiotics Unknown Drug Allergy Active Results Component Value Reference Range Flag Notes Urine Drug Screen (cup read) - 02800 Reviewed date:01/19/2025 10:50:53 AM Interpretation:Negative Performing Lab: Notes/Report: Negative Urine Confirmation Panel (in strument) - [id number] Reviewed date:11/30/2024 03:08:19 PM Interpretation: Performing Lab: Notes/Report: 6-Acetylmorphine 0 <6 ng/mL N This uriel t was developed and its performance characteristics determined by [facility]. It has not been cleared or approved by the U.S. Food and Drug Administration. 7-Aminoclonazepam 0 <60 ng/mL N This te st was developed and its performance characteristics determined by [facility]. It has not been cleared or approved by the U.S. Food and Drug Administration. Alprazolam 0 <60 ng/mL N This test was developed and its performance characteristics determined by [facility]. It has not been cleared or approved by the U.S. Food and Drug Administration. Amphetamine 0 <75 ng/mL N This test was developed and its performance characteristics determined by [facility]. It has not been cleared or approved by the U.S. Food and Drug Administration. aOH-Alprazolam 0 <60 ng/mL N This test was developed and its performance characteristics determined by [facility]. It has not been cleared or approved by the U.S. Food and Drug Administration. Buprenorphine 0.0 <7.5 ng/mL N This test w as developed and its performance characteristics determined by [facility]. It has not been cleared or approved by the U.S. Food and Drug Administration. Norbuprenorphine 0.0 <37.5 ng/mL N This te st was developed and its performance characteristics determined by [facility]. It has not been cleared or approved by the U.S. Food and Drug Administration. Carisoprodol 0 <75 ng/mL N This test wa s developed and its performance characteristics determined by [facility]. It has not been cleared or approved by the U.S. Food and Drug Administration. Codeine 0 <75 ng/mL N This test was developed and its performance characteristics determined by [facility]. It has not been cleared or approved by the U.S. Food and Drug Administration. EDDP 0 <75 ng/mL N This test was developed and its performance characteristics determined by [facility]. It has not been cleared or approved by the U.S. Food and Drug Administration. Fentanyl 0 <6 ng/mL N This test was developed and its performance characteristics determined by [facility]. It has not been cleared or approved by the U.S. Food and Drug Administration. Hydrocodone 0 <75 ng/mL N This test was developed and its performance characteristics determined by [facility]. It has not been cleared or approved by the U.S. Food and Drug Administration. Hydromorphone 0 <75 ng/mL N This test w as developed and its performance characteristics determined by [facility]. It has not been cleared or approved by the U.S. Food and Drug Administration. Lorazepam 0 <60 ng/mL N This test was developed and its performance characteristics determined by [facility]. It has not been cleared or approved by the U.S. Food and Drug Administration. MDMA 0 <75 ng/mL N This test was developed and its performance characteristics determined by [facility]. It has not been cleared or approved by the U.S. Food and Drug Administration. Meperidine 0.0 <37.5 ng/mL N This test was developed and its performance characteristics determined by [facility]. It has not been cleared or approved by the U.S. Food and Drug Administration. Meprobamate 0 <75 ng/mL N This test was developed and its performance characteristics determined by [facility]. It has not been cleared or approved by the U.S. Food and Drug Administration. Methamphetamine 0 <75 ng/mL N This test was developed and its performance characteristics determined by [facility]. It has not been cleared or approved by the U.S. Food and Drug Administration. Methadone 0 <75 ng/mL N This test was developed and its performance characteristics determined by [facility]. It has not been cleared or approved by the U.S. Food and Drug Administration. Morphine 0 <75 ng/mL N This test was developed and its performance characteristics determined by [facility]. It has not been cleared or approved by the U.S. Food and Drug Administration. Nordiazepam 0 <60 ng/mL N This test was developed and its performance characteristics determined by [facility]. It has not been cleared or approved by the U.S. Food and Drug Administration. Norfentanyl 0 <6 ng/mL N This test was developed and its performance characteristics determined by [facility]. It has not been cleared or approved by the U.S. Food and Drug Administration. Normeperidine 0.0 <37.5 ng/mL N This test was developed and its performance characteristics determined by [facility]. It has not been cleared or approved by the U.S. Food and Drug Administration. O-desmethyltramadol >5000 <75 ng/mL > This test was developed and its performance characteristics determined by [facility]. It has not been cleared or approved by the U.S. Food and Drug Administration. Oxazepam 0 <60 ng/mL N This test was developed and its performance characteristics determined by [facility]. It has not been cleared or approved by the U.S. Food and Drug Administration. Oxycodone 0.0 <37.5 ng/mL N This test was developed and its performance characteristics determined by [facility]. It has not been cleared or approved by the U.S. Food and Drug Administration. Oxymorphone 0 <75 ng/mL N This test was developed and its performance characteristics determined by [facility]. It has not been cleared or approved by the U.S. Food and Drug Administration. Phencyclidine 0.0 <7.5 ng/mL N This test w as developed and its performance characteristics determined by [facility]. It has not been cleared or approved by the U.S. Food and Drug Administration. Tapentadol 0.0 <37.5 ng/mL N This test was developed and its performance characteristics determined by [facility]. It has not been cleared or approved by the U.S. Food and Drug Administration. Temazepam 0 <60 ng/mL N This test was developed and its performance characteristics determined by [facility]. It has not been cleared or approved by the U.S. Food and Drug Administration. Tramadol >5000 <75 ng/mL > This test was developed and its performance characteristics determined by [facility]. It has not been cleared or approved by the U.S. Food and Drug Administration. Norhydrocodone 0 <75 ng/mL N This test was developed and its performance characteristics determined by [facility]. It has not been cleared or approved by the U.S. Food and Drug Administration. Noroxycodone 0 <38 ng/mL N This test wa s developed and its performance characteristics determined by [facility]. It has not been cleared or approved by the U.S. Food and Drug Administration. Pregabalin 0 <225 ng/mL N This test was developed and its performance characteristics determined by [facility]. It has not been cleared or approved by the U.S. Food and Drug Administration. Gabapentin 0 <225 ng/mL N This test was developed and its performance characteristics determined by [facility]. It has not been cleared or approved by the U.S. Food and Drug Administration. Benzoylecgonine 0.0 <37.5 ng/mL N This uriel t was developed and its performance characteristics determined by [facility]. It has not been cleared or approved by the U.S. Food and Drug Administration. 4-Hydroxy Xylazine 0 <25 ng/mL N This t est was developed and its performance characteristics determined by [facility]. It has not been cleared or approved by the U.S. Food and Drug Administration. Urine Drug Screen (cup read) - [id number] Reviewed date:11/24/2024 09:34:04 AM Interpretation:Negative Performing Lab: Notes/Report: Negative Tox Results Reviewed date:07/19/2024 11:41:00 AM Interpretation: Performing Lab: Notes/Report: Urine Confirmation Panel (in strument) - [id number] Reviewed date:07/19/2024 05:09:05 PM Interpretation: Performing Lab: Notes/Report: 6-Acetylmorphine 0 <6 ng/mL N This uriel t was developed and its performance characteristics determined by [facility]. It has not been cleared or approved by the U.S. Food and Drug Administration. 7-Aminoclonazepam 0 <60 ng/mL N This te st was developed and its performance characteristics determined by [facility]. It has not been cleared or approved by the U.S. Food and Drug Administration. Alprazolam 0 <60 ng/mL N This test was developed and its performance characteristics determined by [facility]. It has not been cleared or approved by the U.S. Food and Drug Administration. Amphetamine 1 <75 ng/mL N This test was developed and its performance characteristics determined by [facility]. It has not been cleared or approved by the U.S. Food and Drug Administration. aOH-Alprazolam 0 <60 ng/mL N This test was developed and its performance characteristics determined by [facility]. It has not been cleared or approved by the U.S. Food and Drug Administration. Buprenorphine 1.9 <7.5 ng/mL N This test w as developed and its performance characteristics determined by [facility]. It has not been cleared or approved by the U.S. Food and Drug Administration. Norbuprenorphine 0.0 <37.5 ng/mL N This te st was developed and its performance characteristics determined by [facility]. It has not been cleared or approved by the U.S. Food and Drug Administration. Carisoprodol 0 <75 ng/mL N This test wa s developed and its performance characteristics determined by [facility]. It has not been cleared or approved by the U.S. Food and Drug Administration. Codeine 0 <75 ng/mL N This test was developed and its performance characteristics determined by [facility]. It has not been cleared or approved by the U.S. Food and Drug Administration. EDDP 0 <75 ng/mL N This test was developed and its performance characteristics determined by [facility]. It has not been cleared or approved by the U.S. Food and Drug Administration. Fentanyl 0 <6 ng/mL N This test was developed and its performance characteristics determined by [facility]. It has not been cleared or approved by the U.S. Food and Drug Administration. Hydrocodone 0 <75 ng/mL N This test was developed and its performance characteristics determined by [facility]. It has not been cleared or approved by the U.S. Food and Drug Administration. Hydromorphone 0 <75 ng/mL N This test w as developed and its performance characteristics determined by [facility]. It has not been cleared or approved by the U.S. Food and Drug Administration. Lorazepam 0 <60 ng/mL N This test was developed and its performance characteristics determined by [facility]. It has not been cleared or approved by the U.S. Food and Drug Administration. MDMA 0 <75 ng/mL N This test was developed and its performance characteristics determined by [facility]. It has not been cleared or approved by the U.S. Food and Drug Administration. Meperidine 0.0 <37.5 ng/mL N This test was developed and its performance characteristics determined by [facility]. It has not been cleared or approved by the U.S. Food and Drug Administration. Meprobamate 0 <75 ng/mL N This test was developed and its performance characteristics determined by [facility]. It has not been cleared or approved by the U.S. Food and Drug Administration. Methamphetamine 0 <75 ng/mL N This test was developed and its performance characteristics determined by [facility]. It has not been cleared or approved by the U.S. Food and Drug Administration. Methadone 0 <75 ng/mL N This test was developed and its performance characteristics determined by [facility]. It has not been cleared or approved by the U.S. Food and Drug Administration. Morphine 0 <75 ng/mL N This test was developed and its performance characteristics determined by [facility]. It has not been cleared or approved by the U.S. Food and Drug Administration. Nordiazepam 0 <60 ng/mL N This test was developed and its performance characteristics determined by [facility]. It has not been cleared or approved by the U.S. Food and Drug Administration. Norfentanyl 0 <6 ng/mL N This test was developed and its performance characteristics determined by [facility]. It has not been cleared or approved by the U.S. Food and Drug Administration. Normeperidine 0.0 <37.5 ng/mL N This test was developed and its performance characteristics determined by [facility]. It has not been cleared or approved by the U.S. Food and Drug Administration. O-desmethyltramadol 2639 <75 ng/mL H This test was developed and its performance characteristics determined by [facility]. It has not been cleared or approved by the U.S. Food and Drug Administration. Oxazepam 0 <60 ng/mL N This test was developed and its performance characteristics determined by [facility]. It has not been cleared or approved by the U.S. Food and Drug Administration. Oxycodone 0.0 <37.5 ng/mL N This test was developed and its performance characteristics determined by [facility]. It has not been cleared or approved by the U.S. Food and Drug Administration. Oxymorphone 0 <75 ng/mL N This test was developed and its performance characteristics determined by [facility]. It has not been cleared or approved by the U.S. Food and Drug Administration. Phencyclidine 0.0 <7.5 ng/mL N This test w as developed and its performance characteristics determined by [facility]. It has not been cleared or approved by the U.S. Food and Drug Administration. Tapentadol 0.1 <37.5 ng/mL N This test was developed and its performance characteristics determined by [facility]. It has not been cleared or approved by the U.S. Food and Drug Administration. Temazepam 3 <60 ng/mL N This test was developed and its performance characteristics determined by [facility]. It has not been cleared or approved by the U.S. Food and Drug Administration. Tramadol 4485 <75 ng/mL H This test was developed and its performance characteristics determined by [facility]. It has not been cleared or approved by the U.S. Food and Drug Administration. Norhydrocodone 6 <75 ng/mL N This test was developed and its performance characteristics determined by [facility]. It has not been cleared or approved by the U.S. Food and Drug Administration. Noroxycodone 0 <38 ng/mL N This test wa s developed and its performance characteristics determined by [facility]. It has not been cleared or approved by the U.S. Food and Drug Administration. Pregabalin 0 <225 ng/mL N This test was developed and its performance characteristics determined by [facility]. It has not been cleared or approved by the U.S. Food and Drug Administration. Gabapentin 0 <225 ng/mL N This test was developed and its performance characteristics determined by [facility]. It has not been cleared or approved by the U.S. Food and Drug Administration. Benzoylecgonine 0.0 <37.5 ng/mL N This uriel t was developed and its performance characteristics determined by [facility]. It has not been cleared or approved by the U.S. Food and Drug Administration. 4-Hydroxy Xylazine 0 <25 ng/mL N This t est was developed and its performance characteristics determined by [facility]. It has not been cleared or approved by the U.S. Food and Drug Administration. zzzUrine Drug Screen (confir Connectv.comion by instrument) - 64030 Reviewed date:05/24/2024 01:39:06 PM Interpretation: Performing Lab: Notes/Report: Tox Results Reviewed date:11/30/2024 03:24:32 PM Interpretation: Performing Lab: Notes/Report: Reason For Referral No Information Medications Medication SIG (Take, Route, Frequency, Duration) Notes Start Date End Date Status Symbicort 160-4.5 MCG/ACT Aerosol as directed Inhalation Active Isosorbide Dinitrate 30 MG Tablet 1 tablet Orally Twice a day Not-Taking Methocarbamol 500 MG Tablet 1 tablets as needed Orally 3 times a day; Duration: 30 days Fill 30 days from previous Rx 01/19/2025 Active Atorvastatin Calcium 10 MG Tablet 1 tablet Orally Once a day Active buPROPion HCl 100 MG Tablet 1 tablet Orally Twice a day Active Pantoprazole Sodium 20 MG Tablet Delayed Release 1 tablet 1/2 to 1 hour before morning meal Orally Once a day Active Aspirin 81 81 MG Tablet Delayed Release 1 tablet Orally Once a day Active Lisinopril 10 MG Tablet 1 tablet Orally Once a day Active Montelukast Sodium 10 MG Tablet 1 tablet Orally Once a day Active Famotidine 40 MG Tablet 1 tablet Orally Once a day Active Forteo 600 MCG/2.4ML Solution Pen-injector as directed Subcutaneous Active Problems Problem Type SNOMED Code ICD Code Onset Dates Problem Status W/U Status Risk Notes Problem Chronic pain syndrome (269737426) Chronic pain syndrome (G89.4) Active confirmed Problem Lumbosacral spondylosis without myelopathy (23953603) Other spondylosis, lumbosacral region (M47.897) Active confirmed Problem Cervicalgia (69962105) Cervicalgia (M54.2) Active confirmed Problem High risk drug monitoring status (648859582) alf (current) use of opiate analgesic (Z79.891) Active confirmed Problem Lumbosacral spondylosis with radiculopathy (678599804) Lumbosacral spondylosis with radiculopathy (M47.27) Active confirmed Problem Cervical spondylosis without myelopathy (381960698) Spondylosis of cervical region without myelopathy or radiculopathy (M47.812) Active confirmed Problem Lumbar post-laminectomy syndrome (637506999) Lumbar post-laminectomy syndrome (M96.1) Active confirmed Problem Muscle pain (04494772) Myalgia of muscle of neck (M79.18) Active confirmed Vital Signs Height-cm 157.48 cm 01/19/2025 Weight-kg 56.7 kg 01/19/2025 Height 62 in 01/19/2025 Weight 125 lbs 01/19/2025 BMI 22.86 kg/m2 01/19/2025 Encounters Encounter Location Date Provider Diagnosis [facility] [address] [address] 01/19/2025 Lakesha Tate Chronic pain syndrome G89.4 ; Cervicalgia M54.2 ; Spondylosis of cervical region without myelopathy or radiculopathy M47.812 ; Other spondylosis, lumbosacral region M47.897 ; Lumbar post-laminectomy syndrome M96.1 ; Myalgia of muscle of neck M79.18 and predatory animal exterminator (current) use of opiate analgesic Z79.891 [facility] [place] [address] [place] [id number] 11/24/2024 Lakesha Tate Chronic pain syndrome G89.4 ; Cervicalgia M54.2 ; Spondylosis of cervical region without myelopathy or radiculopathy M47.812 ; Other spondylosis, lumbosacral region M47.897 ; Lumbar post-laminectomy syndrome M96.1 ; Myalgia of muscle of neck M79.18 and predatory animal exterminator (current) use of opiate analgesic Z79.891 [facility] [place] [address] [place] [address] 09/13/2024 Ida Lyuksyutova-Pric e Chronic pain syndrome G89.4 ; Cervicalgia M54.2 ; Spondylosis of cervical region without myelopathy or radiculopathy M47.812 ; Other spondylosis, lumbosacral region M47.897 ; Lumbar post-laminectomy syndrome M96.1 ; Myalgia of muscle of neck M79.18 and alf (current) use of opiate analgesic Z79.891 [facility] [place] [address] [place] [address] 07/12/2024 Ida Lyuksyutova-Pric e Chronic pain syndrome G89.4 ; Cervicalgia M54.2 ; Spondylosis of cervical region without myelopathy or radiculopathy M47.812 ; Other spondylosis, lumbosacral region M47.897 ; Lumbar post-laminectomy syndrome M96.1 ; Myalgia of muscle of neck M79.18 and predatory animal exterminator (current) use of opiate analgesic Z79.891 [facility] [place] [address] [place] [address] 05/17/2024 Ida Lyuksyutova-Pric e Chronic pain syndrome G89.4 ; Cervicalgia M54.2 ; Spondylosis of cervical region without myelopathy or radiculopathy M47.812 ; Myalgia of muscle of neck M79.18 and predatory animal exterminator (current) use of opiate analgesic Z79.891 [facility] [place] [address] [place] [address] 11/24/2024 Ida Lyuksyutova-Pric e Cervicalgia M54.2 [facility] [address] [place] [address] 05/12/2024 Ida Lyuksyutova-Pric e Chronic pain syndrome G89.4 [facility] [place] [address] [place] [address] 01/19/2025 Ida Lyuksyutova-Pric e Cervicalgia M54.2 Assessments Encounter Date Diagnosis (ICD Code) Assessment Notes Treatment Notes Treatment Clinical Notes Section Notes 05/17/2024 Chronic pain syndrome (ICD-10 - G89.4) Ms. Manzanares is a very pleasant patient with history of cervical spondylosis as well as lumbar post-laminectomy syndrome. She is not interested in any more pain procedures at this time. We are managing her with medications and multimodal pain therapy. The options for treatment were explained in detail, this included PT, medications, injections, lifestyle modifications and exercise. The patient presents to clinic for medication evaluation and management. The patient is stable on their current medication regimen and endorses adequate analgesia, increased ADLs, denies abuse and side effects. The MEDICAL MICROBIOLOGIST was reviewed with no untoward events noted. UDS reviewed and is as expected. A bowel regimen was discussed with the patient. 05/17/2024 Cervicalgia (ICD-10 - M54.2) 11/24/2024 Chronic pain syndrome (ICD-10 - G89.4) I had a nice discussion with the patient today regarding her chronic pain complaints. She continues with neck and lower back pain. She states she has been having more lower back pain and pain and weakness in her left leg. She reports she is following with Dr. Garcia and just had an MRI. She will have a follow-up with Dr. Garcia when he reviews her MRI. She will keep us updated on this and we will also request these records. She reports she has had interventional procedures many times and these did not provide her any benefit. Therefore she defers any further interventional procedures. She denies any other changes in her health since we last seen her any untoward side effects of the medication. I did discuss lifestyle modifications as well as a bowel regimen. She will continue her medication at present level and return to clinic in 2 months to monitor for treatment effectiveness and compliance. The patient continues with chronic pain requiring treatment to help restore function and improve quality of life. Risks of opioid therapy as well as interaction of opioids with alcohol, illicit drugs, muscle relaxers, and other sedative medications are reviewed briefly with patient again today. The patient has trialed all other reasonable treatment options and uses the medication to alleviate pain in order to remain active and rest with less pain. No clinically relevant medication side effects are noted. Last UDS and [place] MEDICAL MICROBIOLOGIST reviewed today. Patient is advised that best long-term goals include increased activity, core strengthening, proper weight management, coping strategies, avoidance of painful triggers, and targeted interventional therapy. We will see the patient for routine follow up in accordance with all clinic policies. We did remind patient today of current guidelines to decrease opioid when possible. We will continue to stress nonopioid treatment. RECOMMEND URINE TESTING TODAY Urine drug screening will be performed today to monitor compliance with opioid therapy or to serve as a baseline screen for a patient who may be a candidate for opioid therapy in the future, pending UDS results. We will monitor with in-office testing (rapid testing) today and review the results prior to dispensing prescription. All positive results will be sent for quantitative analysis to ensure accuracy and quantify amounts. Any expected positive results that return negative will also be sent for quantitative analysis. Any questionable read or any medication we cannot test for in the office confidently will be sent for quantitative analysis, as well. Patient has been made aware of this policy and agrees to abide by our urine testing policy. 11/24/2024 Cervicalgia (ICD-10 - M54.2) 01/19/2025 Chronic pain syndrome (ICD-10 - G89.4) I had a nice discussion with the patient today regarding her chronic pain complaints. She continues with neck and lower back pain. She states that she is awaiting surgery with Dr. Garcia which she thinks will be at the beginning of February. She reports they had to do an appeal due to it sounds like some documentation issues. I did go over postsurgical pain protocol with her. She does report that she stopped the tramadol as she was in so much pain that her PCP prescribed her hydrocodone 5/325 1.5/day and gave her a 60-day supply. She is not sure if he is going to continue this for her. She has continued with her methocarbamol. She denies any other changes since we last seen her any untoward side effects of the medication. She will return to clinic in 2 months to monitor for treatment effectiveness and compliance. The patient continues with chronic pain requiring treatment to help restore function and improve quality of life. Risks of opioid therapy as well as interaction of opioids with alcohol, illicit drugs, muscle relaxers, and other sedative medications are reviewed briefly with patient again today. The patient has trialed all other reasonable treatment options and uses the medication to alleviate pain in order to remain active and rest with less pain. No clinically relevant medication side effects are noted. Last UDS and [place] MEDICAL MICROBIOLOGIST reviewed today. Patient is advised that best long-term goals include increased activity, core strengthening, proper weight management, coping strategies, avoidance of painful triggers, and targeted interventional therapy. We will see the patient for routine follow up in accordance with all clinic policies. We did remind patient today of current guidelines to decrease opioid when possible. We will continue to stress nonopioid treatment. URINE TESTING TODAY; POINT OF SERVICE Urine drug screening will be performed today to monitor compliance with opioid therapy or to serve as a baseline screen for a patient who may be a candidate for opioid therapy in the future, pending UDS results. We will monitor with in-office testing (rapid testing) today and review the results prior to dispensing prescription, as well. Patient has been made aware of this policy. 01/18/2025 D/C Tramadol 50mg #60 07/12/2024 Chronic pain syndrome (ICD-10 - G89.4) Very pleasant patient with history of cervical spondylosis as well as lumbar post laminectomy syndrome. She's had mulitple interventional pain procedures with Dr. Vargas and had minimal pain relief. She's not interested in any more pain procedures at this time. We're managing her with medication and multimodal pain therapy. The options for treatment were explained in detail, this included PT, medications, injections, lifestyle modifications and exercise. The patient presents to clinic for medication evaluation and management. The patient is stable on their current medication regimen and endorses adequate analgesia, increased ADLs, denies abuse and side effects. The MEDICAL MICROBIOLOGIST was reviewed with no untoward events noted. UDS reviewed and is as expected. A bowel regimen was discussed with the patient. 07/12/2024 Cervicalgia (ICD-10 - M54.2) 05/12/2024 Chronic pain syndrome (ICD-10 - G89.4) 09/13/2024 Chronic pain syndrome (ICD-10 - G89.4) Ms. Manzanares is a pleasant patient with history of cervical spondylosis and lumbar post lamienctomy syndrome. She had multiple interventional pain procedures with Dr. Vargas and reports minimal relief from them. She's not interested in any more procedures at this time. We're managing with medications and multimodal pain therapy. She continues to try to stay as active as she can. PDMP was reviewed. Last prescription was 08/29/2024 for a #60 quantity supply. No untoward events on the PDMP. Last UDS confirmation was 07/12/24 and was consistent and positive for Tramadol. We'll see her back in 2 months. The options for treatment were explained in detail, this included PT, medications, injections, lifestyle modifications and exercise. The patient presents to clinic for medication evaluation and management. The patient is stable on their current medication regimen and endorses adequate analgesia, increased ADLs, denies abuse and side effects. A bowel regimen was discussed with the patient. 09/13/2024 Cervicalgia (ICD-10 - M54.2) 07/12/2024 Spondylosis of cervical region without myelopathy or radiculopathy (ICD-10 - M47.812) 01/19/2025 Cervicalgia (ICD-10 - M54.2) 11/24/2024 Cervicalgia (ICD-10 - M54.2) 05/17/2024 Spondylosis of cervical region without myelopathy or radiculopathy (ICD-10 - M47.812) 01/19/2025 Cervicalgia (ICD-10 - M54.2) 09/13/2024 Spondylosis of cervical region without myelopathy or radiculopathy (ICD-10 - M47.812) 05/17/2024 Myalgia of muscle of neck (ICD-10 - M79.18) 01/19/2025 Spondylosis of cervical region without myelopathy or radiculopathy (ICD-10 - M47.812) 11/24/2024 Spondylosis of cervical region without myelopathy or radiculopathy (ICD-10 - M47.812) 07/12/2024 Other spondylosis, lumbosacral region (ICD-10 - M47.897) 07/12/2024 Lumbar post-laminectomy syndrome (ICD-10 - M96.1) 09/13/2024 Other spondylosis, lumbosacral region (ICD-10 - M47.897) 01/19/2025 Other spondylosis, lumbosacral region (ICD-10 - M47.897) 05/17/2024 alf (current) use of opiate analgesic (ICD-10 - Z79.891) RECOMMEND URINE TESTING TODAYUrine drug screening will be performed today to monitor compliance with opioid therapy or to serve as a baseline screen for a patient who may be a candidate for opioid therapy in the future, pending UDS results. We will monitor with in-office testing (rapid testing) today and review the results prior to dispensing prescription. All positive results will be sent for quantitative analysis to ensure accuracy and quantify amounts. Any expected positive results that return negative will also be sent for quantitative analysis. Any questionable read or any medication we cannot test for in the office confidently will be sent for quantitative analysis, as well. Patient has been made aware of this policy and agrees to abide by our urine testing policy. 11/24/2024 Other spondylosis, lumbosacral region (ICD-10 - M47.897) 11/24/2024 Lumbar post-laminectomy syndrome (ICD-10 - M96.1) 01/19/2025 Lumbar post-laminectomy syndrome (ICD-10 - M96.1) 07/12/2024 Myalgia of muscle of neck (ICD-10 - M79.18) 09/13/2024 Lumbar post-laminectomy syndrome (ICD-10 - M96.1) 09/13/2024 Myalgia of muscle of neck (ICD-10 - M79.18) 07/12/2024 predatory animal exterminator (current) use of opiate analgesic (ICD-10 - Z79.891) RECOMMEND URINE TESTING TODAY Urine drug screening will be performed today to monitor compliance with opioid therapy or to serve as a baseline screen for a patient who may be a candidate for opioid therapy in the future, pending UDS results. We will monitor with in-office testing (rapid testing) today and review the results prior to dispensing prescription. All positive results will be sent for quantitative analysis to ensure accuracy and quantify amounts. Any expected positive results that return negative will also be sent for quantitative analysis. Any questionable read or any medication we cannot test for in the office confidently will be sent for quantitative analysis, as well. Patient has been made aware of this policy and agrees to abide by our urine testing policy. 01/19/2025 Myalgia of muscle of neck (ICD-10 - M79.18) 11/24/2024 Myalgia of muscle of neck (ICD-10 - M79.18) 01/19/2025 alf (current) use of opiate analgesic (ICD-10 - Z79.891) 11/24/2024 predatory animal exterminator (current) use of opiate analgesic (ICD-10 - Z79.891) 09/13/2024 predatory animal exterminator (current) use of opiate analgesic (ICD-10 - Z79.891) RECOMMEND URINE TESTING TODAY Urine drug screening will be performed today to monitor compliance with opioid therapy or to serve as a baseline screen for a patient who may be a candidate for opioid therapy in the future, pending UDS results. We will monitor with in-office testing (rapid testing) today and review the results prior to dispensing prescription. All positive results will be sent for quantitative analysis to ensure accuracy and quantify amounts. Any expected positive results that return negative will also be sent for quantitative analysis. Any questionable read or any medication we cannot test for in the office confidently will be sent for quantitative analysis, as well. Patient has been made aware of this policy and agrees to abide by our urine testing policy. 05/17/2024 Other Total time spent caring for the patient today was greater than 25 minutes. This includes time spent before the visit reviewing the chart, time spent during the visit, and time spent after the visit on documentation Afsaneh Chaney am scribing for Dr. Nunez. Dr. Enrique Chaney, personally performed the services described in this documentation, as scribed by Afsaneh Mccoy, and it is both accurate and complete. 07/12/2024 Other Afsaneh Chaney am scribing for Dr. Nunez. Dr. Enrique Chaney, personally performed the services described in this documentation, as scribed by Afsaneh Mccoy, and it is both accurate and complete. 09/13/2024 Other Afsaneh Chaney am scribing for Dr. Nunez. Dr. Enrique Chaney, personally performed the services described in this documentation, as scribed by Afsaneh Mccoy, and it is both accurate and complete. Plan Of Treatment Future Test Test Name Order Date zzzUrine Drug Screen (confirmation by in strument) - [id number] 07/12/2024 Insurance Providers Payer Name Payer Address Payer Phone Subscriber Number Group Number Insured Name Patient Relationship to Insured Coverage Start Date Coverage End Date [employer] Advantage PPO [address] [address] [place] [phone] [id number] Sangeeta Manzanares Self - patient is the insured Medical (General) History Medical History History ICD Code Arthritis hypertension COPD Asthma Reflux Headache/migraines Depression Anxiety Surgical History Surgery Date(Month/Year) Spinal Surgery Carpal tunnel surgery Hemicolectomy Hospitalization History Reason Date(Month/Year) See surgical Hx
--- NOTE | 2025-03-16 12:11 | PC.NURSE ---
Patient received discharge instructions, 3 IVs were removed and intact. Hemovac was removed along with Sheridan Catheter. Patient tolerated well. Patient received walker from [facility] and meds to beds. Patient verbalized discharge instructions. Patient left via wheelchair to friends vehicle.
== END 2025-03-16 12:16 | disposition home or self-care (01) | DRG 428 ==
LOC: MEDSURG 20:43
PROVIDERS: Admitting Provider Orthopaedic Surgery; PCP Family Medicine; Visit Provider Orthopaedic Surgery
PROC: 0SG30AJ Fusion of Lumbosacral Joint with Interbody Fusion Device, Posterior Approach, Anterior Column, Open Approach (ICD-10-PCS; principal; 2025-03-15 07:00)
PROC: 0SG30AJ Fusion of Lumbosacral Joint with Interbody Fusion Device, Posterior Approach, Anterior Column, Open Approach (ICD-10-PCS; 2025-03-15 07:00)
PROC: 0SG30AJ Fusion of Lumbosacral Joint with Interbody Fusion Device, Posterior Approach, Anterior Column, Open Approach (ICD-10-PCS; CPT 27280; 2025-03-15 07:00)
PROC: 0SG30AJ Fusion of Lumbosacral Joint with Interbody Fusion Device, Posterior Approach, Anterior Column, Open Approach (ICD-10-PCS; CPT 63005; 2025-03-15 07:00)
DX: M96.1 Postlaminectomy syndrome, not elsewhere classified (principal); M48.062 Spinal stenosis, lumbar region with neurogenic claudication; M47.9 Spondylosis, unspecified; J44.9 Chronic obstructive pulmonary disease, unspecified; I10 Essential (primary) hypertension; K21.9 Gastro-esophageal reflux disease without esophagitis; G89.29 Other chronic pain; M43.12 Spondylolisthesis, cervical region; Z79.82 Long term (current) use of aspirin; Z90.49 Acquired absence of other specified parts of digestive tract
CPT/HCPCS: 51702; 72100; 76000; 94640; 97116; 97161; A4649; C1713; C1734; C1776; J0131; J0690; J1100; J1171; J1644; J1885; J2405; J2704; J2710; J3010; J3373; J3490; J7030; J7120; J7613; J7626; J9999

== ENCOUNTER → 2025-03-30 08:07 | Outpatient (BNVA) | payer MEDICARE, SELFPAY | PROVIDERS: PCP Family Medicine; Visit Provider Orthopaedic Surgery | DX: Z98.890 Other specified postprocedural states (principal); Z98.1 Arthrodesis status | CPT/HCPCS: 99024 ==

== ENCOUNTER → 2025-04-27 08:29 | Outpatient (BNVA) | payer MEDICARE, SELFPAY | PROVIDERS: Visit Provider Orthopaedic Surgery | DX: Z98.890 Other specified postprocedural states (principal); Z98.1 Arthrodesis status | CPT/HCPCS: 72100; 99024 ==